=== PATIENT | female | born 1960 | race Caucasian/White ===

== ENCOUNTER 2025-03-20 15:59 | Emergency (ER) | payer OTHER, SELFPAY ==
--- NOTE | ~2025-03-20 | XR_ITS ---
EXAMINATION: XR FOREARM, RIGHT CLINICAL INFORMATION: foosh COMPARISON: None available. TECHNIQUE: AP and lateral views of the right forearm were obtained. FINDINGS: There is an impacted intra-articular fracture of the distal radius with radial styloid loss of height. There is also a transverse fracture through the base of the ulnar styloid into the distal ulna. There is chronic corticated ossification distal to the ulnar styloid tip. XR/XR forearm RT 2V IMPRESSION: There is an impacted intra-articular fracture of the distal radius. There is an ulnar styloid fracture. Electronically signed by: Thom Pro MD 03/20/2025 04:46 PM EDT
--- NOTE | ~2025-03-20 | CT_ITS ---
CLINICAL HISTORY: fall w had strike CT head without contrast Comparison: None provided Findings: No intra-axial mass, midline shift, hydrocephalus, or acute hemorrhage. No significant atrophy. Very mild nonspecific hqmg-qopwqzb-wyiv-right frontal periventricular white matter hypodensities likely minimal chronic small-vessel ischemic changes. The visualized paranasal sinuses and mastoid air cells are clear. The orbits are unremarkable. There is no acute skull fracture. IMPRESSION: 1. No acute intracranial findings. This document has been electronically signed by: Leana Lomeli MD on 03/20/2025 18:11:29
--- NOTE | ~2025-03-20 | XR_ITS ---
CLINICAL HISTORY: pain, injury 4 view right knee Comparison: None provided Findings: No acute fracture. No dislocation. No significant degenerative changes. No erosions. No joint effusion. IMPRESSION: 1. No acute findings. This document has been electronically signed by: Leana Lomeli MD on 03/20/2025 18:56:54
--- NOTE | ~2025-03-20 | CT_ITS ---
CLINICAL HISTORY: fall, pain CT maxillofacial without contrast Comparison: None provided Findings: No acute fractures. Temporomandibular joints are intact. Paranasal sinuses and mastoid air cells clear. Unremarkable orbital contents. IMPRESSION: No acute fracture of the facial bones. This document has been electronically signed by: Leana Lomeli MD on 03/20/2025 18:08:02
--- NOTE | ~2025-03-20 | XR_ITS ---
EXAMINATION: XR HAND, RIGHT CLINICAL INFORMATION: foosh COMPARISON: None available. TECHNIQUE: PA, lateral, and oblique views of the right hand. FINDINGS: There is a mildly impacted articular fracture of the distal radius and small cortical avulsion at the tip of the radial styloid. Forearm x-ray, there is suggestion of a fracture through the base of the ulnar styloid. However, this may just be related to congenital cortical irregularity on the ulnar side of the base of the ulna. There is a small chronic ossification at the distal tip the ulnar styloid. No other abnormality is evident. XR/XR hand RT min 3V IMPRESSION: There is a mildly impacted fracture involving the distal radial articular surface. On the forearm x-ray, there was suspicion of a fracture through the base of the ulnar styloid. However, on the wrist x-ray, there is a small focal concavity on the cortex of the distal ulna that is probably congenital rather than related to a nondisplaced fracture. Correlate for focal pain. Electronically signed by: Thom Pro MD 03/20/2025 04:50 PM EDT
--- NOTE | ~2025-03-20 | CT_ITS ---
CLINICAL HISTORY: fall with head strike CT cervical spine without contrast Comparison: None provided Findings: There is straightening of the cervical lordosis. No subluxation. Vertebral body height is maintained. No acute fracture in the cervical spine. Craniocervical junction is intact. Degenerative disc disease at C4-5 and C5-6 with right neural foraminal stenosis at C4-5 and C5-6. Facet arthropathy especially at C3-4 on the left. Prevertebral soft tissues within normal limits. Thyroid is very small or absent. Lung apices are clear. IMPRESSION: No acute findings. This document has been electronically signed by: Leana Lomeli MD on 03/20/2025 18:01:07
--- NOTE | 2025-03-20 16:02 | ED_ITS ---
HPI - General Adult General Chief complaint: Fall Stated complaint: ? fracture rt arm Time Seen by Provider: 03/20/25 17:02 Source: patient and other (patient's friend) Mode of arrival: ambulatory Limitations: no limitations History of Present Illness ED Provider: Buffy Barahona PA-C HPI narrative: Patient is a 64 year old assigned female at with a history of legal blindness presenting to the emergency department today with right wrist pain, right elbow pain, right knee pain, and facial pain after a fall. Patient states that she tripped on the sidewalk and caught herself with her right arm. Patient denies any other complaints at this time. Patient states that she hit her face but did not lose consciousness with the incident. Related Data Allergies Allergy/AdvReac Type Severity Reaction Status Date / Time No Known Allergies Allergy Verified 03/20/25 16:07 Review of Systems Constitutional: Constitutional: Reports as per HPI Eyes: Eyes: Reports as per HPI ENT: Reports as per HPI Cardiovascular: Cardiovascular: Reports as per HPI Respiratory: Respiratory: Reports as per HPI Gastrointestinal: Gastrointestinal: Reports as per HPI Genitourinary: Genitourinary: Reports as per HPI Musculoskeletal: Musculoskeletal: Reports as per HPI Integumentary/Breasts: Skin/Breast: Reports as per HPI Neurologic: Reports as per HPI Psychiatric: Psychiatric: Reports as per HPI Endocrine: Endocrine: Reports as per HPI Hematologic/Lymphatic: Hematologic/Lymphatic: Reports as per HPI Allergic/Immunologic: Allergic/Immunologic: Reports as per HPI PMF Past Medical History Attestation statement: The following information was validated with the patient. Source: old records reviewed, nursing notes reviewed and other (patient's friend provided additional history and confirmed the history provided by the patient) Social History Social History Smoked in Last 30 Days: No Use of substances other than those prescribed or required for medical reasons: No Advance Directives: No Advance Directives Information Provided: No Do you have a plan to hurt others: No Plan Patient : No Physical Exam ED Vital Signs: Vital Signs - 24 hr 03/20/25 16:05 03/20/25 18:24 03/20/25 19:38 Temperature 97 F 97.4 F 97.5 F Pulse Rate 84 76 69 Respiratory Rate 18 16 16 Blood Pressure 215/107 H 139/76 131/78 Pulse Oximetry 98 100 97 Oxygen Delivery Method Room Air Room Air Room Air BMI result Body Mass Index 26.4 Const General: cooperative, no acute distress, alert and awake Nutritional Appearance: well nourished Orientation/consciousness: patient oriented x3 HENMT Head: Yes normal to inspection and Yes atraumatic Ears: hearing grossly normal bilaterally and external ears normal General nose exam: no nasal discharge noted, no epistaxis and Other nasal findings present (bruising present to the bridge of the nose) Face and sinus: No abrasion and No laceration Mouth: Normal oral and palatal mucosa present, no drooling and no muffled voice Eyes General: appearance normal, both eyes and all related structures Periorbital: periorbital findings normal Eyelids: Yes eyelids normal Conjunctivae: conjunctivae normal Pupils: Equal, round and reactive pupils present EOM: EOMs intact bilaterally Neck Neck: Yes normal visual inspection and Yes full ROM Resp Effort & Inspection: normal respiratory effort and able to speak in complete sentences Neuro General: patient oriented x3, moves all extremities and CN's II-XI intact bilaterally Cranial nerves: Yes Equal, round and reactive pupils present Cognition (Neuro): normal cognition Extrem Other: pain with right wrist + elbow ROM General: Yes normal to inspection and Yes capillary refill normal Psych Appearance: grossly normal Mental Status: mental status grossly normal Affect: normal affect Attitude: cooperative Thought process: Normal thought process present Thought content: Normal thought content present Insight: Good insight present (Psych) Course Course Course Narrative: This is a Rapid Medical Examination (RME) performed by Juan Magana PA-C in triage. Full HPI, ROS, assessment and treatment plan per primary provider in the Main ED. Hx: 64 yo F here w/ right wrist/forearm pain s/p trip and fall onto outstretched right hand [employer]. +head strike. no head or neck pain. no LOC. no thinners. PE/vitals: Subtle deformity to right wrist at the ulnar aspect. limited ROM. 2+radial pulse. Plan: imaging. sling applied in triage. Medications Administered Discontinued Medications Generic Name Dose Route Start Last Admin Trade Name Freq PRN Reason Stop Dose Admin Ketorolac Tromethamine 15 mg 03/20/25 18:33 03/20/25 18:47 Ketorolac Tromethamine 15 Mg/Ml Vial IM 10/31/25 18:34 15 mg ONCE ONE Administration Oxycodone HCl 5 mg 03/20/25 18:33 03/20/25 18:47 Oxycodone Hcl Immed Release 5 Mg Tablet PO 03/20/25 18:34 5 mg ONCE ONE Administration Procedures Orthopedic Splinting/Casting Right wrist: Side: right Upper Extremity Injury Location: wrist Upper Extremity Immobilizer: sling/shoulder immobilizer and sugar tong splint Medical Decision Making Medical Decision Making MDM Narrative: Patient is a 64 year old assigned female at with a history of legal blindness presenting to the emergency department today with right wrist pain, right elbow pain, right knee pain, and facial pain after a fall. Patient's physical exam was as noted in the physical exam portion of this note. Patient's right knee x-ray showed no acute process. Patient's CT face, c-spine, and head were negative. Patient's right hand and forearm x-rays showed a distal radius + ulna styloid fracture. I explained my physical exam findings as well as all test results to the patient and the patient's friend. I answered all questions asked by the patient and the patient's friend. Patient's right wrist was placed in a sugar tong splint, without incident. Patient's PMS was intact prior to and after splint placement. Patient's right upper extremity was placed in a sling, without incident. Patient's PMS was intact prior to and after sling placement. I stressed the importance of the patient taking her medication as directed (either prescribed or as the over the counter packaging recommends). I stressed the importance of the patient following up with her primary care provider and the orthopedic team. I stressed the importance of the patient returning to the emergency department immediately if her symptoms were to worsen or if she were to develop any dizziness, shortness of breath, difficulty breathing, chest pain, blurry vision, loss of vision, nausea, vomiting, abdominal pain, fever, chills, back pain, or any other complaints. Patient and the patient's friend verbalized agreement and understanding with this treatment plan and discharge. Differential Diagnosis Differential Diagnoses: The differential diagnosis associated with the presentation includes Wrist fracture Wrist sprain Wrist strain Elbow sprain Elbow fracture Knee sprain Knee fracture Patellar fracture Knee pain Head injury Facial injury Admission/Observation Consideration of admission/observation: Escalation of care including admission/observation considered Patient would have been admitted to the hospital had her work up had any find ings where hospital admission was appropriate and her clinical presentation warranted hospital admission. Independent Interpretation I performed an independent interpretation of an: Plain X-Ray and CT Scan Interpretation: My interpretation is in agreement with the radiologist's impression of these imaging studies. Reason for Exam: foosh EXAMINATION: XR FOREARM, RIGHT CLINICAL INFORMATION: foosh COMPARISON: None available. TECHNIQUE: AP and lateral views of the right forearm were obtained. FINDINGS: There is an impacted intra-articular fracture of the distal radius with radial styloid loss of height. There is also a transverse fracture through the base of the ulnar styloid into the distal ulna. There is chronic corticated ossification distal to the ulnar styloid tip. XR/XR forearm RT 2V IMPRESSION: There is an impacted intra-articular fracture of the distal radius. There is an ulnar styloid fracture. Electronically signed by: Thom Pro MD 03/20/2025 04:46 PM EDT Dictated By: Thom Pro MD Signed By: Electronically signed by Thom Pro MD 03/20/25 1646 Reason for Exam: foosh EXAMINATION: XR HAND, RIGHT CLINICAL INFORMATION: foosh COMPARISON: None available. TECHNIQUE: PA, lateral, and oblique views of the right hand. FINDINGS: There is a mildly impacted articular fracture of the distal radius and small cortical avulsion at the tip of the radial styloid. Forearm x-ray, there is suggestion of a fracture through the base of the ulnar styloid. However, this may just be related to congenital cortical irregularity on the ulnar side of the base of the ulna. There is a small chronic ossification at the distal tip the ulnar styloid. No other abnormality is evident. XR/XR hand RT min 3V IMPRESSION: There is a mildly impacted fracture involving the distal radial articular surface. On the forearm x-ray, there was suspicion of a fracture through the base of the ulnar styloid. However, on the wrist x-ray, there is a small focal concavity on the cortex of the distal ulna that is probably congenital rather than related to a nondisplaced fracture. Correlate for focal pain. Electronically signed by: Thom Pro MD 03/20/2025 04:50 PM EDT RP Dictated By: Thom Pro MD Signed By: Electronically signed by Thom Pro MD 03/20/25 0870 Report Number: [id number]: Total DLP = 214.00 mGy-cm Reason for Exam: fall with head strike CLINICAL HISTORY: fall with head strike CT cervical spine without contrast Comparison: None provided Findings: There is straightening of the cervical lordosis. No subluxation. Vertebral body height is maintained. No acute fracture in the cervical spine. Craniocervical junction is intact. Degenerative disc disease at C4-5 and C5-6 with right neural foraminal stenosis at C4-5 and C5-6. Facet arthropathy especially at C3-4 on the left. Prevertebral soft tissues within normal limits. Thyroid is very small or absent. Lung apices are clear. IMPRESSION: No acute findings. This document has been electronically signed by: Leana Lomeli MD on 03/20/2025 18:01:07 Dictated By: Leana Lomeli MD Signed By: Electronically signed by Leana Lomeli MD 03/20/25 [id number] Reason for Exam: fall, pain CLINICAL HISTORY: fall, pain CT maxillofacial without contrast Comparison: None provided Findings: No acute fractures. Temporomandibular joints are intact. Paranasal sinuses and mastoid air cells clear. Unremarkable orbital contents. IMPRESSION: No acute fracture of the facial bones. This document has been electronically signed by: Leana Lomeli MD on 03/20/2025 18:08:02 Dictated By: Leana Lomeli MD Signed By: Electronically signed by Leana Lomeli MD 03/20/25 1808 Reason for Exam: fall w/ had strike CLINICAL HISTORY: fall w had strike CT head without contrast Comparison: None provided Findings: No intra-axial mass, midline shift, hydrocephalus, or acute hemorrhage. No significant atrophy. Very mild nonspecific qqnz-[id number]-right frontal periventricular white matter hypodensities likely minimal chronic small- vessel ischemic changes. The visualized paranasal sinuses and mastoid air cells are clear. The orbits are unremarkable. There is no acute skull fracture. IMPRESSION: 1. No acute intracranial findings. This document has been electronically signed by: Leana Lomeli MD on 03/20/2025 18:11:29 Dictated By: Leana Lomeli MD Signed By: Electronically signed by Leana Lomeli MD 03/20/25 1813 Reason for Exam: pain, injury CLINICAL HISTORY: pain, injury 4 view right knee Comparison: None provided Findings: No acute fracture. No dislocation. No significant degenerative changes. No erosions. No joint effusion. IMPRESSION: 1. No acute findings. This document has been electronically signed by: Leana Lomeli MD on 03/20/2025 18:56:5 Dictated By: Leana Lomeli MD Signed By: Electronically signed by Leana Lomeli MD 03/20/25 4870 Radiology Impression Discussion of test interpretation with radiology: I have reviewed the radiologist's reading. Independent Historian Clinical information obtained from an independent historian. History obtained from or confirmed by: Friend (patient's friend provided additional history and confirmed the history provided by the patient. ) Discharge Plan Discharge Clinical Impression: Fracture of wrist, Fall, Contusion Patient Disposition: Home, Self-Care Instructions: Wrist Fracture in Adults (ED), Fall Prevention (ED) Additional Instructions: Do NOT stick anything down / into your splint. Do NOT get your splint wet. Do NOT remove your splint. If you have any change in sensation, movement, or color of your right fingers - you may loosen the outer ABDULAZIZ wraps. If you find yourself loosening the ABDULAZIZ wraps to the point of seeing the white splint material underneath - STOP and proceed to your closest Emergency Department, immediately. Your sling is ONLY to be worn when ambulating and should be OFF all other times with regular shoulder movement to avoid developing frozen shoulder. Follow up with your primary care provider and the orthopedic team. Return to the emergency department immediately if your symptoms worsen or if you develop any numbness, tingling, dizziness, shortness of breath, difficulty breathing, chest pain, blurry vision, loss of vision, nausea, vomiting, abdominal pain, fever, chills, back pain, or any other complaints. Please see the information below about our Patient Portal. If you are not yet enrolled in the [facility] Patient Portal, you will receive an enrollment email invitation following your visit to any [facility] setting. You may also self-enroll in the Patient Portal by visiting our website: [email or web address] The following information is required to access the Patient Portal: - Your [facility] Medical Record Number - Your personal home email address (must match what is in your electronic medica l record, Registration staff can assist with this) - Name - Date of Capabilities of the Patient Portal: - Message some providers - View upcoming appointments - Access your health summary, medical history, and visit history - View current conditions and allergies - View procedure and lab results - View your medications, including guidelines, side effects, and precautions - Complete pre-appointment questionnaires requested by your provider - Ready summary reports of your office visits and procedures To access the Patient Portal Mobile [employer], follow these directions: - Search [employer] in the [employer] Store or [employer] Store - Download the Caesar - Search for [facility] - Enter your login/password Referrals: [facility] Orthopedic Surgeons [Provider Group] Referral Note: Call to establish and follow up with the orthopedic team. Rustam Key DO [Primary Care Provider, Internal Medicine] Interventions: ED Discharge Assessment Last Done: 03/20/25 19:38 Discharge Date/Time: 03/20/25 19:40 Print Language: Lao
[2025-03-20 16:05] VITALS: BP 215/107; PULSE 84; RESP 18; TEMP 36.1; O2SAT 98; BMI 26.4
--- OUTSIDE RECORDS SUMMARY | 2025-03-20 17:24 | XMS_ITS | Clinical Summary ---
Author Organization [facility] Address [address] [place] [phone] Phone Care Team Providers Care Wafer Polishing Worker Name Role Phone Rustam Key Primary Care Provider Allergies No known active allergies Medications montelukast (SINGULAIR) 10 mg tablet Take 10 mg by mouth nightly at bedtime. Active albuterol 90 mcg/actuation inhaler Inhale 2 puffs into the lungs every 6 (six) hours as needed for wheezing. Active fluticasone propionate (FLONASE) 50 mcg/actuation nasal spray 1 spray by Nasal route daily. Active levothyroxine (SYNTHROID, LEVOTHROID) 112 MCG tablet Take 112 mcg by mouth every morning. 10/27/19 24 Active fluticasone propion-salmetero L (ADVAIR DISKUS) 250-50 mcg/dose DISKUS Inhale 250 mcg/actuation of fluticasone into the lungs 2 (two) times a day. Active ketoconazole (NIZORAL) 2 % shampoo Apply topically. 12/26/19 24 Active multivit-min/iron /folic acid/K (BARIATRIC MULTIVITAMINS ORAL) Take by mouth. patch Active nitrofurantoin (MACROBID) 100 MG capsule Take 1 capsule by mouth 2 (two) times a day. 02/25/20 24 Active diazePAM (VALIUM) 5 MG tablet TAKE 1 TABLET BY MOUTH EVERY 8 HOURS NEEDED FOR MUSCLE SPASMS DO NOT TAKE SAME TIME OXYCODONE 12/31/20 24 Active docusate sodium (COLACE) 100 MG capsule TAKE 1 CAPSULE BY MOUTH 2 TIMES A DAY NEEDED FOR CONSTIPATION 05/20/20 24 Active biotin 1 mg tablet Take 1,000 mcg by mouth 3 (three) times a day. Active hydrocortisone 2.5 % cream PLEASE SEE ATTACHED FOR DETAILED DIRECTIONS 09/11/19 25 Active lidocaine HCl, bulk, 100 % Powd 09/11/19 25 Active Active Problems Problem Noted Date Diagnosed Date Intestinal malabsorption following gastrectomy 0 05/27/2024 Overweight with body mass in dex (BMI) of 26 to 26.9 in adult 03/18/2024 Assessment & Plan (02/17/2025 3:53 PM EDT): This is a 64-year-old woman who is status post laparoscopic sleeve gastrectomy with hiatal hernia repair January 03, 2024. She has done extremely well with weight loss. She will continue current eating plan and water intake. She should add formalized exercise. I have ordered her annual blood work. She will continue current medications as reviewed. She will follow-up with her primary care physician going forward for her bariatric follow-up and for annual blood work in December. Assessment & Plan (10/03/2024 3:43 PM EDT): This is a 64-year-old woman who is doing extremely well with weight loss after having laparoscopic sleeve gastrectomy with hiatal hernia repair December 2023. The patient needs to add back formalized exercise. She is drinking plenty of water and she is getting at least 60 g of protein on a daily basis. She will continue current medications as reviewed. She will follow-up with me again in 3 months timeframe. She is not stable and is considered overweight. Assessment & Plan (08/01/2024 3:00 PM EDT): This is a 64-year-old woman who has done well with weight loss after having laparoscopic sleeve gastrectomy. Her weight is pretty stable over the past couple of months. She will increase her formalized exercise and add some strength training. She will continue current eating plan and water intake. She will continue current medications as reviewed. She is not stable and is considered overweight. I will follow-up with her again in the office in 2 months timeframe. Assessment & Plan (05/27/2024 4:47 PM EST): This is a 63-year-old woman who underwent a laparoscopic sleeve gastrectomy with hiatal hernia repair January 03, 2024. The patient is doing well with eating plan exercise plan and water intake. I have ordered her 6-month blood work. She will follow-up with the dietitian as already scheduled for June 16 and follow-up with me again in 2 months timeframe. She is not stable and is considered overweight. Assessment & Plan (03/18/2024 4:03 PM EDT): This is a 63-year-old woman who is doing well with weight loss after having laparoscopic sleeve gastrectomy with hiatal hernia repair January 03, 2024. The patient is usually getting 60 g of protein she should continue with this. She is no longer being treated for hypertension and has been taken off her medication. She will increase the frequency and intensity of her exercise and add some resistance training. She will continue all other medications as reviewed. She will follow- up with the dietitian as already scheduled for April 16 follow-up with me again in 2 months timeframe. She is not stable and is considered overweight. Status post laparoscopic sleeve gastrectomy 12/19 Hypertension 12/12/2023 Asthma 12/12/2023 Hypothyroidism 12/12/2023 Class 1 obesity due to exces s calories with serious comorbidity and body mass index (BMI) of 32.0 to 32.9 in adult 11/16/2023 Assessment & Plan (01/22/2024 4:36 PM EDT): This is a 63-year-old woman who is doing well with weight loss after having laparoscopic sleeve gastrectomy with hiatal hernia repair about 2 weeks ago. The patient will advance her diet to a pur ed diet with 2 protein shakes being consumed per day for 2 weeks and then advance to a soft regular diet with 2 protein shakes being consumed per day for 2 weeks and then advance to a regular diet with 2 protein shakes being consumed per day with her meals and she will about 4 to 6 months out from surgery until she can consume at least 70 to 80 g of protein on a daily basis by food alone. The patient should avoid all heavy lifting greater than 15 pounds for another 2 weeks and then may go unrestricted in terms of physical activity. Patient will follow-up with the dietitian as already scheduled for February 03 and follow-up with me again in 2 months timeframe. The patient may advance her diet as prescribed below: Postoperative Diet Advancement Two weeks postoperatively: Two protein shakes daily and 2 small meals that are pureed Advanced to pureed diet which is chunk light pink tuna with mayonnaise, canned shredded chicken with mayonnaise, ricotta cheese with spaghetti sauce, ground turkey or ground chicken chili without beans, scrambled eggs, cottage cheese, Mold[place] yogurt, cauliflower rice, or you may place any food in the tailings worker a food specialist to create pureed food. Four weeks postoperatively: Two protein shakes daily and 2 small soft regular meals. At this point you will not have to puree food. Make sure the food is cooked soft and chewed well before you swallow it. Six weeks postoperatively: Two protein shakes daily and 2 regular meals. Avoid all salads and raw vegetables for 3 months postoperatively. Assessment & Plan (11/16/2023 2:56 PM EDT): This is a 63-year-old woman who is done extremely well with weight loss and has lost all the weight she needs to lose in order to be a surgical weight loss candidate. She is interested in sleeve gastrectomy for weight loss. She has completed 5 out of 5 nutrition classes, 2 out of 2 behavioral health assessments and all required testing. She has her PCP support letter. She will continue current eating plan and exercise plan and water intake. Will submit her information to the insurance company for approval for laparoscopic possible open sleeve gastrectomy with possible hiatal hernia repair and intraoperative endoscopy. Once we have approval from the insurance company we will set up a date to have the preoperative surgical class with the dietitian and we will set up a surgical date. Preoperative examination 10/01/2023 Morbid obesity with BMI of 40.0-44.9, adult 09/18 Assessment & Plan (10/01/2023 3:28 PM EDT): This is a 63 YO patient who is interested in weight loss surgery, specifically the laparoscopic sleeve gastrectomy for weight loss. We have discussed gastric bypass and sleeve gastrectomy surgery in detail including risks, benefits, and alternatives. We have also discussed requirements preop and post op. They understands that they are required to lose about 10 percent of their current weight which is 21 lbs. The goal weight at the time of submission to the insurance company will be 193.8 pounds. In an effort to help the patient to lose weight I have prescribed an eating plan which will consist of a protein shake or a protein bar or [place] yogurt or cottage cheese to be consumed at 9 AM and 3 PM daily. The patient will consume 4 ounces of protein with 6 ounces of vegetable or small salad with a noncreamy salad dressing of not more than 2 tablespoons at 12 PM and 6 PM daily. At the 6 PM meal the patient may have 1/2 cup of carbohydrate. We have ordered required labs and testing. The patient will attend 5 nutrition classes, 2 appointments, and dietitian consultation. The patient will need to obtain a medical clearance letter from the primary care doctor prior to submission to the insurance company. The patient will see the dietitian in 2 and 4 weeks and I will follow up with them again in 6 weeks to ensure compliance with the meal plan. The patient will continue current medications as reviewed. They are not stable and are considered morbidly obese. I spent 57 minutes with this patient which also included documentation. Encounters Date Type Department Care Team Description 02/17/2025 3:30 PM EDT Office Visit [facility] General Surgical [facility] [address] [place] [address] [place] [address] Sepideh Barrientos MD Overweight with body mass index (BMI) of 26 to 26.9 in adult (Primary Dx); Bariatric surgery status; Status post laparoscopic sleeve gastrectomy; Intestinal malabsorption following gastrectomy; Acquired hypothyroidism from Last 3 Months Immunizations Immunization Administration Dates Next Due COVID-19 Moderna Spikevax Vaccine 12+ 02/29/2024 COVID-19, Unspecified Formulation 2021,10/20/2021,03/23/2021,2020,07/12/2020 INFLUENZA, SPLIT VIRUS, TRIV ALENT W/ PRESERVATIVE IM 02/28/2022 Influenza Quadrivalent MDCK Preservative Free IM 02/28/2022 Influenza Quadrivalent Prese rvative Free IM 02/20/2020 Influenza, Unspecified Formulation 02/29/2024 Influenza, whole 02/20/2020 Td, unspecified formulation 03/08/2006 Tdap 06/13/2016 Family History Medical History Relation Comments Skin cancer Brother Stroke Maternal Grandmother Dementia Mother Alcohol abuse Sister Drug abuse Sister Relation Status Comments Brother Alive Maternal Grandmother Mother Alive Sister Alive Social History Tobacco Use Types Packs/Day Years Used Date Smoking Tobacco: Never Smokeless Tobacco: Never Tobacco Cessation:Counseling Given: Not Answered Alcohol Use Standard Drinks/Week Comments Yes 0 (1 standard drink = 0.6 oz pure alcohol) 2 glasses of white wine per month if that Education Answer Date Recorded Are you interested in more education? Not on isac e 09/15/2022 Are you concerned about learning? Not on file 09/15/2022 No 09/15/2022 No 09/15/2022 Food Answer Date Recorded Within the past 6 months we worried whether our food would run out before we got money to buy more. Never True 01/03/2024 Within the past 6 months the food we bought just didn't last and we didn't have enough money to get more. Never True Residential Stability Answer Date Recor ded What is your housing situation today? I have padmini sing 01/03/2024 How many times have you move d in the past 12 months? Zero (I did not move) 01/03/2024 Paying for Meds Answer Date Recorded Do you have trouble paying for medicines? No 01/03/2024 Paying Utility Bills Answer Date Record ed Do you have trouble paying your heating or elect ricity bill? No 01/03/2024 Transportation Answer Date Recorded Has the lack of transportati on kept you from medical appointments or from getting medications? No 01/03/2024 Digital Access Answer Date Recorded No 01/03/2024 Yes 01/03/2024 Do you have reliable internet access at home? Ye s 01/03/2024 Do you have a device (e.g., phone, tablet, computer) with a working camera? Yes 01/03/2024 Intimate Partner Violence Answer Date R ecorded Are you denied basic needs s uch as food, clothing, or medical care? No 01/03/2024 In the past 12 months have y ou been in a relationship with a person who hurts, threatens, or tries to control you? No 01/03/2024 Are you denied basic needs s uch as food, clothing, or medical care? No 01/03/2024 In the past 12 months have y ou been in a relationship with a person who hurts, threatens, or tries to control you? 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 Not on fi le Not on file Not on file Last Filed Vital Signs Vital Sign Reading Time Taken Comments Blood Pressure 110/70 02/17/2025 3:00 PM EDT Pulse 76 02/17/2025 3:00 PM EDT Temperature 36.5 C (97.7 F) 02/17/2025 3:00 PM EDT Respiratory Rate 18 01/04/2024 11:24 AM EDT Oxygen Saturation 98% 02/17/2025 3:00 PM EDT Inhaled Oxygen Concentration - - Weight 62.2 kg (137 lb 3.2 oz) 02/17/2025 3:00 P M EDT Height 152.4 cm (5') 02/17/2025 3:00 PM EDT Body Mass Index 26.8 02/17/2025 3:00 PM EDT Plan of Treatment Health Maintenance Due Date Last Done Comments HEPATITIS C SCREENING 1980 HIV ONE-TIME SCREENING (18-65 YEARS) 1980 PNEUMOCOCCAL VACCINES (50+ years) (1 of 2 - PCV) 1981 PAP SMEAR 1983 MAMMOGRAM 2002 COLOGUARD 2007 COLONOSCOPY 2007 COLORECTAL CANCER SCREENING 2007 FIT TEST 2007 FOBT 2007 SIGMOIDOSCOPY 2007 VIRTUAL COLONOSCOPY 2007 RSV VACCINE (1 - Risk 50-74 years 1-dose series) 2012 ZOSTER VACCINES (1 of 2) 2012 DEPRESSION SCREENING 10/23/2024 10/24/2023 INFLUENZA VACCINE (#1) 2024 , 02/28/2022, 02/28/2022, Additional history exists COVID-19 VACCINE (2024- season) 2025 02/29/2024, 02/28/2022, 02/28/2022, Additional history exists TSH LEVEL 05/28/2025 05/28/2024, 06/0 12/2023, 06/16/2019 BLOOD PRESSURE 08/17/2025 02/17/2025 Adult Td,Tdap Booster 06/13/2026 06/13/2016, 006 SCREENING FOR DIABETES 05/28/2027 05/28/2024, 2024 LIPID PANEL 05/28/2029 05/28/2024, 10/27/2023 SMOKING STATUS SCREENING (Once After 26 Yrs) Completed 02/17/2025 HEPATITIS A VACCINES Aged Out No long er eligible based on patient's age to complete this topic HIB VACCINES Aged Out No longer eligi ble based on patient's age to complete this topic MENINGOCOCCAL VACCINES (ACWY) Aged Out No longer eligible based on patient's age to complete this topic MENINGOCOCCAL VACCINES (B) Aged Out N o longer eligible based on patient's age to complete this topic Medical Devices Implanted Type Area Invoicing Machine Operator Device Identifier Shelf Expiration Date Model / Serial / Lot [employer] Mandible Description:Dental implants Procedures Procedure Name Priority Date/Time Associated Diagnosis Comments LIPID PANEL Routine 05/28/2024 2:19 PM EST Intestinal malabsorption following gastrectomy TSH Routine 05/28/2024 2:19 PM EST Acquired hypothyroidism from Last 3 Months or Most Recently Relevant to Health Maintenance Results * TSH (05/28/2024 2:19 PM EST) TSH 0.46 0.27 - 4.20 uIU/mL [facility] Blood 05/28/2024 2:19 PM EST 05/28/2024 2:28 PM EST us Sepideh Lauren Iliana MD LAB BLOOD ORDERABLES Final Result Performing Organization Address [facility]/ZIP Co de Phone Number [address] [address] * (ABNORMAL) Lipid panel (05/28/2024 2:19 PM EST) HDL 61 mg/dL [facility] Comment: Interpretation <40 mg/dL: Low HDL cholesterol (major risk factor for CHD) Greater than or equal to 60 mg/dL: High HDL cholesterol ( negative risk factor for CHD) HDL - cholesterol is affected by a number of factors, e.g. smoking, excerise, hormones, sex and age. CHOLESTEROL 181 0 - 240 mg/dL [facility] TRIGLYCERIDES 101 30 - 160 mg/dL [facility] LDL 100 50 - 129 mg/dL [facility] Comment: LDL levels in terms of risk for coronary heart disease: <100 mg/dL: Optimal 100-129 mg/dL: Near or above optimal 130-159 mg/dL: Borderline high 160-189 mg/dL: High >190 mg/dL: Very High CARDIAC RISK RATIO 3.0(L) 3.3 - 4.4 C [facility] Blood 05/28/2024 2:19 PM EST 05/28/2024 2:29 PM EST us Sepideh Barrientos MD LAB BLOOD ORDERABLES Final Result Performing Organization Address [facility] Co de Phone Number [address] [address] from Last 3 Months or Most Recently Relevant to Health Maintenance Insurance [facility] [employer] [place] [address] [place] [address] EMPLOYEES FAMILY EMPLOYEES FAMILY EMPLOYEES FAMILY EMPLOYEES FAMILY EMPLOYEES FAMILY EMPLOYEES FAMILY EMPLOYEES FAMILY EMPLOYEES FAMILY Advance Directives For more information, please contact: [phone] (9AM - 5PM [place], Sunday-Sunday) * Full Code (Latest Code Status on File) Date Activated Date Inactivated Comments 01/03/2024 12:47 PM Question Answer Comments Code Status Confirmed With: Patient * Full Code Date Activated Date Inactivated Comments 01/03/2024 7:16 AM 01/03/2024 12:47 PM Question Answer Comments Code Status Confirmed With: Patient Care Teams Wafer Polishing Worker Relationship Specialty Start Date End Date [facility] DO [facility] [address] [address] PCP - General Family Medicine 01/04/24 Additional Source Comments The information contained in this document represents components of the legal health record. It is not the complete legal health record.[facility]
--- OUTSIDE RECORDS SUMMARY | 2025-03-20 17:24 | XMS_ITS | Encounter Summary ---
Author Organization [facility] Address [address] [place] [phone] Phone Care Team Providers Care Storage Wharfage Clerk Name Role Phone Radha Carroll MD Primary Care Provider [phone] Natalie Manning MD Primary Care Provider [phone] Rustam Key DO Primary Care Provider + [phone] Encounter Details Date Type Department Care Team (Late st Contact Info) Description 09/04/2017 Procedure Pass [facility],Outside Imaging [address], [place] [id number] Social History Tobacco Use Types Packs/Day Years Used Date Smoking Tobacco: Never Assessed Comments Unknown Sex and Gender Information Value Date Recorded Sex Assigned at Female 11/30/2023 8:17 AM EDT Legal Sex Female 9:45 PM EDT Gender Identity Female 11/30/2023 8:17 AM EDT Sexual Orientation Not on file documented as of this encounter Plan of Treatment Not on file documented as of this encounter Visit Diagnoses Not on filedocumented in this encounter Care Teams Storage Wharfage Clerk Relationship Specialty Start Date End Date Radha Carroll MD [email or web address] PCP - General Family Medicine 09/03/17 04/13/19 Natalie Manning MD [address] [place], [place] [id number] [email or web address] PCP - General Family Medicine 04/14/1901/02 [facility] [address] [address] PCP - General Family Medicine 01/04/24 documented as of this encounter Additional Source Comments The information contained in this document represents components of the legal health record. It is not the complete legal health record.[facility]
--- OUTSIDE RECORDS SUMMARY | 2025-03-20 17:24 | XMS_ITS | Encounter Summary ---
Author Organization [facility] Address [facility] [employer] [facility] [address] [place] [address] Phone Care Team Providers Care Supervisor Wood Room Name Role Phone Radha Carroll MD Primary Care Provider [phone] Natalie Manning MD Primary Care Provider [phone] Rustam Key DO Primary Care Provider [phone] Encounter Details Date Type Department Care Team (Late st Contact Info) Description 09/03/2017 Ancillary Orders Virtual Department [address] [place] [address] Radha Carroll MD 38 [facility] [address] [place] [address] [email or web address] Localized swelling, mass and lump, unspecified Social History Tobacco Use Types Packs/Day Years [...] on file documented as of this encounter Results * MRI ABDOMEN WITH AND WITHOUT CONTRAST (09/05/2017 8:22 PM EDT) Anatomical Region Laterality Modality Abdomen Magnetic Resonan ce 09/05/2017 9:37 PM EDT Impressions 09/06/2017 12:58 PM EDT Lesion on CT corresponds with a hemangioma. There is an additional smaller adjacent hemangioma. Two pancreatic cysts, one of which communicates with the duct. These could represent cysts, pseudocysts, or IPMN. Recommend follow-up in one year. POS [id number] Edited by: Alisia Raines on 09/06/2017 8:49 AM Narrative 09/06/2017 12:58 PM EDT HISTORY: See above. COMPARISON: None CORRELATION: Abdominal CT 08/31/2017 TECHNIQUE: Exam performed on a 1.5 Scarlet high-field MRI scanner. Axial T1 in and out of phase, T1 with fat suppression and T2 with fat suppression, coronal T1 in and out of phase and T1 with fat suppression, followed by post-gadolinium multi-phase T1 series with fat suppression and coronal T1 with fat suppression sequences were obtained. Radial thick slab MRCP, coronal oblique thin section MRCP sequences were obtained. Reformatted axial and cholangiographic MIP images are available for review. FINDINGS: Liver: Normal in size without architectural changes of cirrhosis. Mild drop of signal on opposed phase imaging from steatosis. In the posterior inferior right hepatic lobe, there is a 2.7 x 2.3 x 2.5 cm T1 hypointense and T2 hyperintense lesion which shows discontinuous peripheral globular enhancement that fills in to become isointense to the blood pool on delayed images compatible with a hemangioma. This corresponds with the lesion seen on the CT. There is a similar-appearing 0.9 cm lesion just medial and superior. Tiny cyst in the inferior right hepatic lobe. Gallbladder/biliary: No filling defects within the gallbladder to indicate gallstones. No pericholecystic fluid or wall thickening. No biliary ductal dilatation. Spleen: No abnormality detected. Pancreas: In the pancreatic head there is a 6 mm cyst which appears to communicate with the main pancreatic duct. In the tail, there is a 0.5 cm cyst which does not clearly communicate with the duct. No solid enhancing mass. No pancreatic ductal dilatation or variant anatomy. Adrenal glands: No masses. Kidneys/ureters: No hydronephrosis or focal lesions. Vasculature: Hepatic veins and portal vein patent. Aorta has normal caliber. Peritoneum: No significant ascites or organized collections. Lymph nodes: No lymphadenopathy detected. Body wall: No suspicious mass. Bowel: Nonobstructed pattern. Normal appendix. Lower Thorax: No infiltrate in the basal lungs. No pleural or pericardial effusions. Bones: Multilevel degenerative changes. Reproductive: 2.5 cm cyst in the left adnexa is likely physiologic. Procedure Note Evon Cosme MD - 09/06/2017 HISTORY: See above. COMPARISON: None CORRELATION: Abdominal CT 08/31/2017 TECHNIQUE: Exam performed on a 1.5 Scarlet high-field MRI scanner. Axial T1in and out of phase, T1 with fat suppression and T2 with fat suppression,coronal T1 in and out of phase and T1 with fat suppression, followed bypost-gadolinium multi-phase T1 series with fat suppression and coronal T1with fat suppression sequences were obtained. Radial thick slab MRCP,coronal oblique thin section MRCP sequences were obtained. Reformattedaxial and cholangiographic MIP images are available for review. FINDINGS: Liver: Normal in size without architectural changes of cirrhosis. Milddrop of signal on opposed phase imaging from steatosis. In the posteriorinferior right hepatic lobe, there is a 2.7 x 2.3 x 2.5 cm T1 hypointenseand T2 hyperintense lesion which shows discontinuous peripheral globularenhancement that fills in to become isointense to the blood pool ondelayed images compatible with a hemangioma. This corresponds with thelesion seen on the CT. There is a similar-appearing 0.9 cm lesion justmedial and superior. Tiny cyst in the inferior right hepatic lobe. Gallbladder/biliary: No filling defects within the gallbladder toindicate gallstones. No pericholecystic fluid or wall thickening. Nobiliary ductal dilatation. Spleen: No abnormality detected. Pancreas: In the pancreatic head there is a 6 mm cyst which appears tocommunicate with the main pancreatic duct. In the tail, there is a 0.5 cmcyst which does not clearly communicate with the duct. No solid enhancingmass. No pancreatic ductal dilatation or variant anatomy. Adrenal glands: No masses. Kidneys/ureters: No hydronephrosis or focal lesions. Vasculature: Hepatic veins and portal vein patent. Aorta has normalcaliber. Peritoneum: No significant ascites or organized collections. Lymph nodes: No lymphadenopathy detected. Body wall: No suspicious mass. Bowel: Nonobstructed pattern. Normal appendix. Lower Thorax: No infiltrate in the basal lungs. No pleural orpericardial effusions. Bones: Multilevel degenerative changes. Reproductive: 2.5 cm cyst in the left adnexa is likely physiologic. IMPRESSION: Lesion on CT corresponds with a hemangioma. There is an additionalsmaller adjacent hemangioma. Two pancreatic cysts, one of which communicates with the duct. Thesecould represent cysts, pseudocysts, or IPMN. Recommend follow-up in oneyear. POS [id number] Edited by: Alisia Raines on 09/06/2017 8:49 AM Radha Carroll MD IMG MR ABDOMEN Final Result documented in this encounter Visit Diagnoses Diagnosis Localized swelling, mass and lump, unspecified Localized swelling, mass and lump, unspecified documented in this encounter Care Teams Supervisor Wood Room Relationship Specialty Start Date End Date Radha Carroll MD [email or web address] PCP - General Family Medicine 09/03/17 04/13/19 Natalie Manning MD [address] [place] [id number] [email or web address] PCP - General Family Medicine 04/14/1899/02 [place] [address] [address] PCP - General Family Medicine 01/04/24 documented as of this encounter Additional Source Comments The information contained in this document represents components of the legal health record. It is not the complete legal health record.[facility]
--- OUTSIDE RECORDS SUMMARY | 2025-03-20 17:24 | XMS_ITS | Encounter Summary ---
Author Organization [facility] Address [address] [place] [address] Phone Care Team Providers Care Statue Maker Name Role Phone Radha Carroll MD Primary Care Provider [phone] Natalie Manning MD Primary Care Provider [phone] Rustam Key DO Primary Care Provider [phone] Reason for Referral * MRI/CAT Scan - Closed Specialty Diagnoses / Procedures Referred By Contac t Referred To Contact Procedures CT Abdomen Outside (No Interpretation) System, Provider Not In, PhD [employer] [address] [place] [id number] Referral ID Status Reason Start Date Expiration Date Visits Re quested Visits Authorized [id number] Closed 09/04/2017 09/04/2018 1 1 Encounter Details Date Type Department Care Team (Late st Contact Info) Description 09/04/2017 Ancillary Orders [facility]Outside Imaging [address] [place] [address] System, Provider Not In, [place] [place] [address] Social History Tobacco Use Types Packs/Day Years [...] documented as of this encounter Results * CT Abdomen Outside (No Interpretation) (08/31/2017 12:00 AM EDT) Narrative SYSTEMGENERATED, DOCUMENTATION - 09/04/2017 6:22 AM EDT This study is for PACS storage only and not for interpretation. us Provider Not In System PhD IMG OUTSIDE IMAGING W /OUT INTERPRETATION Final Result documented in this encounter Visit Diagnoses Not on filedocumented in this encounter Care Teams Statue Maker Relationship Specialty Start Date End Date Radha Carroll MD [email or web address] PCP - General Family Medicine 09/03/17 04/13/19 Natalie Manning MD [address] [place] [address] [email or web address] PCP - General Family Medicine [birth year]01[birth year]02 Rustam Key DO [address] [address] PCP - General Family Medicine 01/04/24 documented as of this encounter Additional Source Comments The information contained in this document represents components of the legal health record. It is not the complete legal health record.[facility]
--- OUTSIDE RECORDS SUMMARY | 2025-03-20 17:24 | XMS_ITS | Encounter Summary ---
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 Wish to be (Past 1 Month) No 01/03/2024 1:00 PM Ramy Wu RN 2. Non-Specific Active Suici timoteo Thoughts (Past 1 Month) No 01/03/2024 1:00 PM EDT Jose A Lynn RN 6. Suicidal Behavior (Lifetime) No 4 1:00 PM EDT Ramy Lynn RN documented as of this encounter Plan of Treatment Not on file documented as of this encounter Visit Diagnoses Not on filedocumented in this encounter Additional Health Concerns Assessment Noted Time PHQ-2 Depression Total Score: 0 10/24/19 24 3:22 PM EDT documented as of this encounter Care Teams Carburetor Repairer Relationship Specialty Start Date End Date Natalie Manning MD [address] [place] [address] [email or web address] PCP - General Family Medicine 04/14/1899/02 Rustam Key DO [address] [address] PCP - General Family Medicine 01/04/24 documented as of this encounter Additional Source Comments The information contained in this document represents components of the legal health record. It is not the complete legal health record.[facility]
--- OUTSIDE RECORDS SUMMARY | 2025-03-20 17:24 | XMS_ITS | Encounter Summary ---
Author Organization [facility] Address [address] [place] [phone] Phone Care Team Providers Care Anime Designer Name Role Phone Radha Carroll MD Primary Care Provider [phone] Natalie Manning MD Primary Care Provider [phone] Rustam Key DO Primary Care Provider [phone] Encounter Details Date Type Department Care Team (Late st Contact Info) Description 09/03/2017 Procedure Pass [facility] [employer], [address] [address] Social History Tobacco Use Types Packs/Day Years Used Date Smoking Tobacco: Never Assessed Comments Unknown Sex and Gender Information Value Date Recorded Sex Assigned at Female 11/30/2023 8:17 AM EDT Legal Sex Female 9:45 PM EDT Gender Identity Female 11/30/2023 8:17 AM EDT Sexual Orientation Not on file documented as of this encounter Last Filed Vital Signs Vital Sign Reading Time Taken Comments Blood Pressure - - Pulse - - Temperature - - Respiratory Rate - - Oxygen Saturation - - Inhaled Oxygen Concentration - - Weight 83.9 kg (185 lb) 09/04/2017 8:47 AM EDT Height 152.4 cm (5') 09/04/2017 8:47 AM EDT Body Mass Index 36.13 09/04/2017 8:47 AM EDT documented in this encounter Plan of Treatment Not on file documented as of this encounter Visit Diagnoses Not on filedocumented in this encounter Care Teams Anime Designer Relationship Specialty Start Date End Date Radha Carroll MD [email or web address] PCP - General Family Medicine 09/03/17 04/13/19 Natalie Manning MD [address] [place] [address] [email or web address] PCP - General Family Medicine 04/14/1899/02 Rustam Key DO [address] [id number] PCP - General Family Medicine 01/04/24 documented as of this encounter Additional Source Comments The information contained in this document represents components of the legal health record. It is not the complete legal health record.[facility]
--- OUTSIDE RECORDS SUMMARY | 2025-03-20 17:24 | XMS_ITS | Encounter Summary ---
Author Organization [facility] Address [address] [place] [address] Phone Care Team Providers Care Enrollment Counselor Name Role Phone Radha Carroll MD Primary Care Provider [phone] Natalie Manning MD Primary Care Provider [phone] Rustam Key DO Primary Care Provider [phone] Reason for Referral * Physical Therapy (Routine) - Closed Specialty Diagnoses / Procedures Referred By Larry ernandez Referred To Contact Physical Therapy Diagnoses Encounter for rehabilitation Natalie Manning MD Phone: tel: fax: mailto:[email or web address] [place] [address] Phone: tel: Referral ID Status Reason Start Date Expiration Date Visits Re quested Visits Authorized [id number] Closed 03/31/2019 05/20/2020 53 53 Encounter Details Date Type Department Care Team (Latest Contact Info) Description 03/31/2019 Transcribe Orders [facility] [address] [place] [address] Natalie Manning MD [address] [place], [place] [id number] [email or web address] Encounter for rehabilitation (Primary Dx) Social History Tobacco Use Types Packs/Day Years Used Date Smoking Tobacco: Never Assessed Comments Unknown Sex and Gender Information Value Date Recorded Sex Assigned at Female 11/30/2023 8:17 AM EDT Legal Sex Female 9:45 PM EDT Gender Identity Female 11/30/2023 8:17 AM EDT Sexual Orientation Not on file documented as of this encounter Plan of Treatment Scheduled Referrals Name Type Priority Associated Diagnoses Orde r Schedule Ambulatory referral to [facility] Physical Therapy Outpatient Referral Routine Encounter for rehabilitation Ordered: 03/31/2019 documented as of this encounter Visit Diagnoses Diagnosis Encounter for rehabilitation- Primary documented in this encounter Care Teams Enrollment Counselor Relationship Specialty Start Date End Date Radha Carroll MD [email or web address] PCP - General Family Medicine 09/03/17 04/13/19 Natalie Manning MD [address] [place] [address] [email or web address] PCP - General Family Medicine 04/14/1899/02 [place] [address] [address] PCP - General Family Medicine 01/04/24 documented as of this encounter Additional Source Comments The information contained in this document represents components of the legal health record. It is not the complete legal health record.[facility]
[2025-03-20 18:24] VITALS: BP 139/76; PULSE 76; RESP 16; TEMP 36.3; O2SAT 100
[2025-03-20] MEDS: oxyCODONE HCl Immed Release 5 MG TABLET PO (18:47)
[2025-03-20 19:38] VITALS: BP 131/78; PULSE 69; RESP 16; TEMP 36.4; O2SAT 97
== END 2025-03-20 19:40 | disposition home or self-care (01) ==
PROVIDERS: Emergency Provider Emergency Medicine; PCP Family Medicine
DX: S52.501A Unspecified fracture of the lower end of right radius, initial encounter for closed fracture (principal); S09.90XA Unspecified injury of head, initial encounter; W01.0XXA Fall on same level from slipping, tripping and stumbling without subsequent striking against object, initial encounter; Y93.89 Activity, other specified; Y92.488 Other paved roadways as the place of occurrence of the external cause; Y99.8 Other external cause status; M25.561 Pain in right knee; H54.8 Legal blindness, as defined in USA; Z79.899 Other long term (current) drug therapy
CPT/HCPCS: 70450; 70486; 72125; 73090; 73130; 73564; 96372; 99284; J1885

== ENCOUNTER → 2025-03-20 16:04 | Outpatient (BNV) | payer OTHER, SELFPAY | PROVIDERS: PCP Family Medicine; Visit Provider Radiology Diagnostic Radiology | DX: S09.90XA Unspecified injury of head, initial encounter (principal); R51.9 Headache, unspecified; S80.911A Unspecified superficial injury of right knee, initial encounter; S52.501A Unspecified fracture of the lower end of right radius, initial encounter for closed fracture; S52.611A Displaced fracture of right ulna styloid process, initial encounter for closed fracture; S52.571A Other intraarticular fracture of lower end of right radius, initial encounter for closed fracture; W18.39XA Other fall on same level, initial encounter; W18.30XA Fall on same level, unspecified, initial encounter | CPT/HCPCS: 70450; 70486; 72125; 73090; 73110; 73130; 73564 ==

== ENCOUNTER 2025-03-23 14:03 | Outpatient (REF) | payer OTHER, SELFPAY | END 2025-03-23 14:04 | disposition home or self-care (01) | LOC: HO.HOSX 14:03 | PROVIDERS: Visit Provider Orthopaedic Surgery | DX: Z13.89 Encounter for screening for other disorder (principal) ==

== ENCOUNTER 2025-03-24 13:04 | Outpatient (REF) | payer OTHER, SELFPAY ==
--- NOTE | ~2025-03-24 | XR_ITS ---
EXAMINATION: XR WRIST, RIGHT CLINICAL INFORMATION: M25.531 - Pain in right wrist COMPARISON: None available. TECHNIQUE: PA, lateral, and oblique views of the right wrist. FINDINGS: Inadequate [id number]. There is a cortical disruption involving the distal metaphysis of the radius and extending into the articular surface without gross malalignment. Cortical disruption of the styloid processes, right ulna. Incomplete evaluation of the scaphoid. No subcutaneous emphysema. No metallic or radiopaque foreign body. XR/XR wrist RT min 3V IMPRESSION: Intra-articular comminuted fracture distal metaphysis, right radius. Fracture, styloid processes, right ulna. Incomplete evaluation of the scaphoid. Electronically signed by: Leroy Mejia MD 03/24/2025 02:31 PM TERRENCE BARLOW
--- OUTSIDE RECORDS SUMMARY | 2025-03-25 15:51 | XMS_ITS | Encounter Summary ---
Author Organization [facility] Address [facility] [employer] [facility] [address] [place] [address] Phone Care Team Providers Care Counter Pocket Trimmer Name Role Phone Radha Carroll MD Primary Care Provider [phone] Natalie Manning MD Primary Care Provider [phone] Rustam Key DO Primary Care Provider [phone] Encounter Details Date Type Department Care Team (Late st Contact Info) Description 09/03/2017 Ancillary Orders Virtual Department [address] [place] [address] Radha Carroll MD 38 [facility] [address] [place] [address] [email or web address] Localized swelling, mass and lump, unspecified [...] unspecified documented in this encounter Care Teams Counter Pocket Trimmer Relationship Specialty Start Date End Date Radha Carroll MD [email or web address] PCP - General Family Medicine 09/03/17 04/13/19 Natalie Manning MD [address] [place] [address] [email or web address] PCP - General Family Medicine 04/14/1901/02 [place] [address] [address] PCP - General Family Medicine 01/04/24 documented as of this encounter Additional Source Comments The information contained in this document represents components of the legal health record. It is not the complete legal health record.[facility]
--- OUTSIDE RECORDS SUMMARY | 2025-03-25 15:51 | XMS_ITS | Clinical Summary ---
Author Organization [facility] Address [address] [place] [address] Phone Care Team Providers Care Railroad Maintenance Clerk Name Role Phone Rustam Key Primary Care [...] chili without beans, scrambled eggs, cottage cheese, Burundian yogurt, cauliflower rice, or you may place any food in the ethnology professor a food service director to create pureed food. 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/ZIP Co de Phone Number [address] [address] * (ABNORMAL) Lipid panel (05/28/2024 2:19 PM EST) HDL 61 mg/dL [facility] Comment: Interpretation <40 mg/dL: Low HDL cholesterol (major risk factor for CHD) Greater than or equal to 60 mg/dL: High HDL cholesterol ( negative risk factor for CHD) HDL - cholesterol is affected by a number of factors, e.g. smoking, excerise, hormones, sex and age. CHOLESTEROL 181 0 - 240 mg/dL [facility] TRIGLYCERIDES 101 30 - 160 mg/dL [facility] LDL 100 50 - 129 mg/dL [facility] Comment: LDL levels in terms of risk for coronary heart disease: <100 mg/dL: Optimal 100-129 mg/dL: Near or above optimal 130-159 mg/dL: Borderline high 160-189 mg/dL: High >190 mg/dL: Very High CARDIAC RISK RATIO 3.0(L) 3.3 - 4.4 C [facility] Blood 05/28/2024 2:19 PM EST 05/28/2024 2:29 PM EST us Sepideh Barrientos MD LAB BLOOD BKR ORDERABLES F inal Result Performing Organization Address [facility]/ZIP Co de Phone Number [address] [address] from Last 3 Months or Most Recently Relevant to Health Maintenance Insurance [facility] EMPLOYEES FAMILY EMPLOYEES FAMILY EMPLOYEES FAMILY EMPLOYEES FAMILY EMPLOYEES FAMILY EMPLOYEES FAMILY EMPLOYEES FAMILY EMPLOYEES FAMILY EMPLOYEES FAMILY Advance Directives For more information, please contact: [phone] (9AM - 5PM [place], Sunday-Sunday) * Full Code (Latest Code Status on File) Date Activated Date Inactivated Comments 01/03/2024 12:47 PM Question Answer Comments Code Status Confirmed With: Patient * Full Code Date Activated Date Inactivated Comments 01/03/2024 7:16 AM 01/03/2024 12:47 PM Question Answer Comments Code Status Confirmed With: Patient Care Teams Railroad Maintenance Clerk Relationship Specialty Start Date End Date Rustam Key DO [address] [address] PCP - General Family Medicine 01/04/24 Additional Source Comments The information contained in this document represents components of the legal health record. It is not the complete legal health record.[facility]
--- OUTSIDE RECORDS SUMMARY | 2025-03-25 15:51 | XMS_ITS | Encounter Summary ---
Author Organization [facility] Address [address] [place] [address] Phone Care Team Providers Care Crystal Report Developer Name Role Phone Radha Carroll MD Primary Care Provider [phone] Natalie Manning MD Primary Care Provider [phone] Rustam Key DO Primary Care Provider [phone] Reason for Referral * MRI/CAT Scan - Closed Specialty Diagnoses / Procedures Referred By Contac t Referred To Contact Procedures CT Abdomen Outside (No Interpretation) System, Provider Not In, PhD [employer] [address] [place] [address] Referral ID Status Reason Start Date Expiration Date Visits Re quested Visits Authorized [id number] Closed 09/04/2017 09/04/2018 1 1 Encounter Details Date Type Department Care Team (Late st Contact Info) Description 09/04/2017 Ancillary Orders [facility],Outside Imaging [address] [place] [address] System, Provider Not In, [place] [address] Social History Tobacco Use Types Packs/Day Years [...] on filedocumented in this encounter Care Teams Crystal Report Developer Relationship Specialty Start Date End Date Radha Carroll MD [email or web address] PCP - General Family Medicine 09/03/17 04/13/19 Natalie Manning MD [address] [place] [address] [email or web address] PCP - General Family Medicine 04/14/1901/02 Rustam Key DO [address] [address] PCP - General Family Medicine 01/04/24 documented as of this encounter Additional Source Comments The information contained in this document represents components of the legal health record. It is not the complete legal health record.[facility]
--- OUTSIDE RECORDS SUMMARY | 2025-03-25 15:51 | XMS_ITS | Encounter Summary ---
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 Not on file Not on file documented as of this encounter Functional Status * Calculated C-SSRS Risk Score (Lifetime/Recent) Answer Date of Assessment Author No Risk Indicated 01/03/2024 1:00 PM EDT Ramy Lynn RN * [place] Suicide Severity Rating Scale (Screener/Recent Self-Report) Question [...] documented as of this encounter Care Teams Civil Geotechnical Engineer Relationship Specialty Start Date End Date Natalie Manning MD [address] [place] [address] [email or web address] PCP - General Family Medicine 04/14/1901/02 Rustam Key DO [address] [address] PCP - General Family Medicine 01/04/24 documented as of this encounter Additional Source Comments The information contained in this document represents components of the legal health record. It is not the complete legal health record.[facility]
--- OUTSIDE RECORDS SUMMARY | 2025-03-25 15:52 | XMS_ITS | Encounter Summary ---
Author Organization [facility] Address [address] [place] [address] Phone Care Team Providers Care Olive Picker Name Role Phone Radha Carroll MD Primary Care Provider [phone] Natalie Manning MD Primary Care Provider [phone] Rustam Key DO Primary Care Provider + [phone] Encounter Details Date Type Department Care Team (Late st Contact Info) Description 09/04/2017 Procedure Pass [facility],Outside Imaging [address] [place], [place] [phone] Social History Tobacco Use Types Packs/Day Years [...] on filedocumented in this encounter Care Teams Olive Picker Relationship Specialty Start Date End Date Radha Carroll MD [email or web address] PCP - General Family Medicine 09/03/17 04/13/19 Natalie Manning MD [address] [place], [place] [id number] [email or web address] PCP - General Family Medicine 04/14/1901/02 [facility] [address] [address] PCP - General Family Medicine 01/04/24 documented as of this encounter Additional Source Comments The information contained in this document represents components of the legal health record. It is not the complete legal health record.[facility]
--- OUTSIDE RECORDS SUMMARY | 2025-03-25 15:52 | XMS_ITS | Encounter Summary ---
Author Organization [facility] Address [address] [place] [address] Phone Care Team Providers Care Recruiting Internship Name Role Phone Radha Carroll MD Primary Care Provider [phone] Natalie Manning MD Primary Care Provider [phone] Rustam Key DO Primary Care Provider [phone] Reason for Referral * Physical Therapy (Routine) - Closed Specialty Diagnoses / Procedures Referred By Larry ernandez Referred To Contact Physical Therapy Diagnoses Encounter for rehabilitation Natalie Manning MD Phone: tel: fax: mailto:[email or web address] [place] [address] Phone: tel: Referral ID Status Reason Start Date Expiration Date Visits Re quested Visits Authorized [id number] Closed 03/31/2019 05/20/2020 53 53 Encounter Details Date Type Department Care Team (Latest Contact Info) Description 03/31/2019 Transcribe Orders [facility] [address] [place] [address] Natalie Manning MD [address] [place], [place] [id number] [email or web address] Encounter for rehabilitation (Primary Dx) Social History [...] Diagnoses Orde r Schedule Ambulatory referral to [facility] Physical Therapy Outpatient Referral Routine Encounter for rehabilitation Ordered: 03/31/2019 documented as of this encounter Visit Diagnoses Diagnosis Encounter for rehabilitation- Primary documented in this encounter Care Teams Recruiting Internship Relationship Specialty Start Date End Date Radha Carroll MD [email or web address] PCP - General Family Medicine 09/03/17 04/13/19 Natalie Manning MD [address] [place] [address] [email or web address] PCP - General Family Medicine 04/14/[birth year]01/02 [place] [address] [address] PCP - General Family Medicine 01/04/24 documented as of this encounter Additional Source Comments The information contained in this document represents components of the legal health record. It is not the complete legal health record.[facility]
--- OUTSIDE RECORDS SUMMARY | 2025-03-25 15:52 | XMS_ITS | Encounter Summary ---
Author Organization [facility] Address [address] [place] [address] Phone Care Team Providers Care Bodywork Therapist Name Role Phone Radha Carroll MD Primary Care Provider [phone] Natalie Manning MD Primary Care Provider [phone] Rustam Key DO Primary Care Provider [phone] Encounter Details Date Type Department Care Team (Late st Contact Info) Description 09/03/2017 Procedure Pass [facility], [address] [address] Social History Tobacco Use Types Packs/Day Years [...] on filedocumented in this encounter Care Teams Bodywork Therapist Relationship Specialty Start Date End Date Radha Carroll MD [email or web address] PCP - General Family Medicine 09/03/17 04/13/19 Natalie Manning MD [address] [place] [address] [email or web address] PCP - General Family Medicine 04/14/1901/02 Rustam Key DO [address] [id number] PCP - General Family Medicine 01/04/24 documented as of this encounter Additional Source Comments The information contained in this document represents components of the legal health record. It is not the complete legal health record.[facility]
== END 2025-03-24 13:05 | disposition home or self-care (01) ==
LOC: HO.HOSX 13:04
PROVIDERS: Visit Provider Orthopaedic Surgery
DX: S52.614A Nondisplaced fracture of right ulna styloid process, initial encounter for closed fracture (principal); S52.571A Other intraarticular fracture of lower end of right radius, initial encounter for closed fracture; W01.198A Fall on same level from slipping, tripping and stumbling with subsequent striking against other object, initial encounter
CPT/HCPCS: 25600; 73110

== ENCOUNTER 2025-03-24 14:15 | Outpatient (AMB) | payer OTHER, SELFPAY ==
--- NOTE | 2025-03-24 14:34 | MHC.OFFVIS ---
Vital Signs 03/24/25 14:43 Height 5 ft Weight 135 lb BMI 26.4 Handedness Right Intake Visit Reasons: F/C RT Dis. Rad.& ulnar fx 03/20/25 Intake Note: Navya is a 64 year old right hand dominant woman who presents today for an emergency department follow up for her right hand injury, s/p fall DOI 03/20/2025. Patient reports tripping and landing on outstretched hands however the ulnar aspect of the right hand slammed against some rocks. Denies numbness and tingling now. She did have numbness in the right hand with her splint on but this resolved. Denies popping or locking of fingers. 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 Says she had some oxycodone from old sx that helped her with pain at night since that is when her symptoms are worse. Tylenol as needed for pain with some relief. Allergies No Known Allergies Allergy (Verified 03/20/25 16:07) HPI HPI F/C RT Dis. Rad.& ulnar fx 03/20/25: Details: Navya is a 64 year old right hand dominant woman who presents for a right distal radius & ulnar styloid fractures, S/P fall, DOI: 03/20/25. She was seen in the ED and placed in a sugar-tong splint. She is seen today with a female friend. She complains of pain in her wrist. She says she initially had some numbness & tingling but this improved after adjusting her splint, and may have been related. She is legally blind. 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 Review of Systems Const All systems reviewed & are unremarkable except as noted in HPI and below Physical Exam Vital Signs: BMI result Body Mass Index 26.4 Const General: cooperative, healthy appearing and no acute distress Orientation/consciousness: patient oriented x3 HEENT Head: Yes normocephalic and Yes atraumatic Eyes EOM: EOMs intact bilaterally Resp Effort & Inspection: normal respiratory effort and able to speak in complete sentences Cardio Jugular venous distension: no JVD Skin General skin exam: turgor normal Rashes: no rashes Neuro General: patient oriented x3 Extrem Other: Evaluation of Right Upper Extremity: The patient is alert, oriented, and in no acute distress Neuro: Median, Ulnar, Radial nerves motor and sensory intact and sensation is normal to the tips of all digits Vascular: Cap refill brisk ROM: With encouragement she could make a fist and extend all her digits Skin: No lacerations or abrasions. General: No Erythema or evidence of infection. Some swelling about the wrist & forearm Some ecchymosis about the wrist No tenderness about the elbow No tenderness with proximal forearm squeeze Most tender over the distal radius Radiographs: 3 views of the right wrist were taken and viewed by me today in clinic. They show a transverse distal radius fracture with intra-articular extension. This is a small loss of inclination, and she is at about neutral on the lateral view with a small amount of dorsal translation. There is also an ulnar styloid fracture with nondisplaced extension to the base of the styloid.. Psych Appearance: grossly normal Affect: normal affect Attitude: cooperative Assessment & Plan Assessment & Plan (1) Fracture of right distal radius: Code(s): S52.501A - Unspecified fracture of the lower end of right radius, initial encounter for closed fracture Category: Medical (2) Fracture of right ulnar styloid: Code(s): S52.611A - Displaced fracture of right ulna styloid process, initial encounter for closed fracture Category: Medical Plan Assessment & Plan: 1. Right distal radius fracture, comminuted intra-articular minimally displaced From a fall, DOI: 03/20/25 2. Right ulnar styloid fracture, nondisplaced From a fall, DOI: 03/20/25 I educated her about this condition I discussed operative and non-operative treatment options. I explained that she may require surgery but I am hopeful that she will do fine non-operatively. She was splinted today and will follow up in 1 week with new radiographs. I encouraged rest & elevating at or above heart level I discussed activity modifications, she is to lift nothing heavier than a pencil until next week. She will work on gentle finger ROM exercises at home. She is to avoid making a tight fist She works as a teacher, she was given a note to remain out of work for the next 3 weeks She will follow up next week, with X-rays, 3V R wrist, OOP. Depending on radiographs we will decide whether to proceed with an ORIF vs managing this in a cast. Scribed for Salud Horan MD by Juan Carlos Haider, medical records library professor, on 03/24/25 at 2:50 PM, EST. Orders: Orders XR wrist RT min 3V Today M25.531 - Pain in right wrist Coding Level of Care Code New Pt Level 4 (23045) Diagnoses Fracture of right distal radius S52.501A Fracture of right ulnar styloid S52.611A
[2025-03-24 14:43] VITALS: BMI 26.4
--- OUTSIDE RECORDS SUMMARY | 2025-03-24 17:15 | XMS_ITS | Encounter Summary ---
Author Organization [facility] Address [facility] [employer] [facility] [address] [place] [address] Phone Care Team Providers Care Bi Application Developer Name Role Phone Radha Carroll MD Primary Care Provider [phone] Natalie Manning MD Primary Care Provider [phone] Rustam Key DO Primary Care Provider [phone] Encounter Details Date Type Department Care Team (Late st Contact Info) Description 09/03/2017 Ancillary Orders Virtual Department [address] [place] [address] Radha Carroll MD 38 [facility] [address] [place] [address] [email or web address] Localized swelling, mass and lump, [...] unspecified documented in this encounter Care Teams Bi Application Developer Relationship Specialty Start Date End Date Radha Craroll MD [email or web address] PCP - General Family Medicine 09/03/17 04/13/19 Natalie Manning MD [address] [place] [id number] [email or web address] PCP - General Family Medicine 04/14/1899/02 [place] [address] [address] PCP - General Family Medicine 01/04/24 documented as of this encounter Additional Source Comments The information contained in this document represents components of the legal health record. It is not the complete legal health record.[facility]
--- OUTSIDE RECORDS SUMMARY | 2025-03-24 17:15 | XMS_ITS | Encounter Summary ---
Author Organization [facility] Address [address] [place] [address] Phone Care Team Providers Care Senior Firmware Engineer Name Role Phone Radha Carroll MD Primary Care Provider [phone] Natalie Manning MD Primary Care Provider [phone] Rustam Key DO Primary Care Provider [phone] Reason for Referral * Physical Therapy (Routine) - Closed Specialty Diagnoses / Procedures Referred By Larry ernandez Referred To Contact Physical Therapy Diagnoses Encounter for rehabilitation Natalie Manning MD Phone: tel: fax: [email or web address] [address] [place] [address] Phone: tel: Referral ID Status Reason Start Date Expiration Date Visits Re quested Visits Authorized [id number] Closed 03/31/2019 05/20/2020 53 53 Encounter Details Date Type Department Care Team (Latest Contact Info) Description 03/31/2019 Transcribe Orders [facility] [address] [place] [address] Natalie Manning MD [address] [place], [place] [id number] [email or web address] Encounter for rehabilitation (Primary Dx) Social History [...] Diagnoses Orde r Schedule Ambulatory referral to [facility] Physical Therapy Outpatient Referral Routine Encounter for rehabilitation Ordered: 03/31/2019 documented as of this encounter Visit Diagnoses Diagnosis Encounter for rehabilitation- Primary documented in this encounter Care Teams Senior Firmware Engineer Relationship Specialty Start Date End Date Radha Carroll MD [email or web address] PCP - General Family Medicine 09/03/17 04/13/19 Natalie Manning MD [address] [place] [address] [email or web address] PCP - General Family Medicine 04/14/1899/02 [place] [address] [address] PCP - General Family Medicine 01/04/24 documented as of this encounter Additional Source Comments The information contained in this document represents components of the legal health record. It is not the complete legal health record.[facility]
--- OUTSIDE RECORDS SUMMARY | 2025-03-24 17:15 | XMS_ITS | Encounter Summary ---
Author Organization [facility] Address [address] [place] [address] Phone Care Team Providers Care Clutch Specialist Name Role Phone Radha Carroll MD Primary Care Provider [phone] Natalie Manning MD Primary Care Provider [phone] Rustam Key DO Primary Care Provider [phone] Reason for Referral * MRI/CAT Scan - Closed Specialty Diagnoses / Procedures Referred By Contac t Referred To Contact Procedures CT Abdomen Outside (No Interpretation) System, Provider Not In, [facility] [employer] [address] [place] [address] Referral ID Status Reason Start Date Expiration Date Visits Re quested Visits Authorized [id number] Closed 09/04/2017 09/04/2018 1 1 Encounter Details Date Type Department Care Team (Late st Contact Info) Description 09/04/2017 Ancillary Orders [facility],Outside Imaging [address] [place] [address] System, Provider Not In, [place] [address] Social History Tobacco Use Types Packs/Day Years [...] on filedocumented in this encounter Care Teams Clutch Specialist Relationship Specialty Start Date End Date Radha Carroll MD [email or web address] PCP - General Family Medicine 09/03/17 04/13/19 Natalie Manning MD [address] [place] [address] [email or web address] PCP - General Family Medicine 04/14/1901/02 Rustam Key DO [address] [address] PCP - General Family Medicine 01/04/24 documented as of this encounter Additional Source Comments The information contained in this document represents components of the legal health record. It is not the complete legal health record.[facility]
--- OUTSIDE RECORDS SUMMARY | 2025-03-24 17:15 | XMS_ITS | Encounter Summary ---
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 Not on file Not on file documented as of this encounter Functional Status * Calculated C-SSRS Risk Score (Lifetime/Recent) Answer Date of Assessment Author No Risk Indicated 01/03/2024 1:00 PM EDT Ramy Lynn RN * [place] Suicide Severity Rating Scale (Screener/Recent Self-Report) Question [...] documented as of this encounter Care Teams Children'S Author Relationship Specialty Start Date End Date Natalie Manning MD [address] [place] [address] [email or web address] PCP - General Family Medicine [birth year]01[birth year]02 Rustam Key DO [address] [address] PCP - General Family Medicine 01/04/24 documented as of this encounter Additional Source Comments The information contained in this document represents components of the legal health record. It is not the complete legal health record.[facility]
--- OUTSIDE RECORDS SUMMARY | 2025-03-24 17:15 | XMS_ITS | Encounter Summary ---
Author Organization [facility] Address [address] [place] [address] Phone Care Team Providers Care Final Inspector And Tester Name Role Phone Radha Carroll MD Primary Care Provider [phone] Natalie Manning MD Primary Care Provider [phone] Rustam Key DO Primary Care Provider [phone] Encounter Details Date Type Department Care Team (Late st Contact Info) Description 09/04/2017 Procedure Pass [facility],Outside Imaging [address] [place], [place] [phone] Social History Tobacco Use Types Packs/Day Years [...] on filedocumented in this encounter Care Teams Final Inspector And Tester Relationship Specialty Start Date End Date Radha Carroll MD [email or web address] PCP - General Family Medicine 09/03/17 04/13/19 Natalie Manning MD [address] [place], [place] [phone] [email or web address] PCP - General Family Medicine 04/14/[birth year]01/02 [facility] [address] [address] PCP - General Family Medicine 01/04/24 documented as of this encounter Additional Source Comments The information contained in this document represents components of the legal health record. It is not the complete legal health record.[facility]
--- OUTSIDE RECORDS SUMMARY | 2025-03-24 17:16 | XMS_ITS | Clinical Summary ---
Author Organization [facility] Address [address] [place] [address] Phone Care Team Providers Care Fitting Room Checker Name Role Phone Rustam Key Primary Care [...] chili without beans, scrambled eggs, cottage cheese, Togolese yogurt, cauliflower rice, or you may place any food in the program engineer a hospital food service worker to create pureed food. 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 [...] this topic Medical Devices Implanted Type Area Briquette Machine Operator Helper Device Identifier Shelf Expiration Date Model / Serial / Lot [employer] NOD[employer] Mandible Description:Dental implants Procedures Procedure Name Priority Date/Time Associated Diagnosis Comments LIPID PANEL Routine 05/28/2024 2:19 PM EST Intestinal malabsorption following gastrectomy THYROID STIMULATING HORMONE (TSH) Routine 05/28/2024 2:19 PM EST Acquired hypothyroidism from Last 3 Months or Most Recently Relevant to Health Maintenance Results * TSH (05/28/2024 2:19 PM EST) TSH 0.46 0.27 - 4.20 uIU/mL [facility] Blood 05/28/2024 2:19 PM EST 05/28/2024 2:28 PM EST us Sepideh Barrientos MD LAB BLOOD BKR ORDERABLES F inal Result Performing Organization Address [facility]/ZIP Co de Phone Number [address] [address] * (ABNORMAL) Lipid panel (05/28/2024 2:19 PM EST) HDL 61 mg/dL [facility] Comment: Interpretation <40 mg/dL: Low HDL cholesterol (major risk factor for CHD) Greater than or equal to 60 mg/dL: High HDL cholesterol ( negative risk factor for CHD) HDL - cholesterol is affected by a number of factors, e.g. smoking, excerise, hormones, sex and age. CHOLESTEROL 181 0 - 240 mg/dL [facility] TRIGLYCERIDES 101 30 - 160 mg/dL [facility] LDL 100 50 - 129 mg/dL [facility] Comment: LDL levels in terms of risk for coronary heart disease: <100 mg/dL: Optimal 100-129 mg/dL: Near or above optimal 130-159 mg/dL: Borderline high 160-189 mg/dL: High >190 mg/dL: Very High CARDIAC RISK RATIO 3.0(L) 3.3 - 4.4 C [facility] Blood 05/28/2024 2:19 PM EST 05/28/2024 2:29 PM EST us Sepideh Barrientos MD LAB BLOOD BKR ORDERABLES F inal Result Performing Organization Address [facility]/ZIP Co de Phone Number [address] [address] from Last 3 Months or Most Recently Relevant to Health Maintenance Insurance [facility] [employer] FAMILY EMPLOYEES FAMILY EMPLOYEES FAMILY EMPLOYEES FAMILY EMPLOYEES FAMILY EMPLOYEES FAMILY EMPLOYEES FAMILY EMPLOYEES FAMILY EMPLOYEES FAMILY Advance Directives For more information, please contact: [phone] (9AM - 5PM [place], Sunday-Sunday) * Full Code (Latest Code Status on File) Date Activated Date Inactivated Comments 01/03/2024 12:47 PM Question Answer Comments Code Status Confirmed With: Patient * Full Code Date Activated Date Inactivated Comments 01/03/2024 7:16 AM 01/03/2024 12:47 PM Question Answer Comments Code Status Confirmed With: Patient Care Teams Fitting Room Checker Relationship Specialty Start Date End Date Rustam Key DO [address] [address] PCP - General Family Medicine 01/04/24 Additional Source Comments The information contained in this document represents components of the legal health record. It is not the complete legal health record.[facility]
--- OUTSIDE RECORDS SUMMARY | 2025-03-24 17:16 | XMS_ITS | Encounter Summary ---
Author Organization [facility] Address [address] [place] [address] Phone Care Team Providers Care Director Engineering Name Role Phone Radha Carroll MD Primary Care Provider [phone] Natalie Mannign MD Primary Care Provider [phone] Rustam Key DO Primary Care Provider [phone] Encounter Details Date Type Department Care Team (Late st Contact Info) Description 09/03/2017 Procedure Pass [facility], [address] [address] Social History Tobacco Use Types Packs/Day Years [...] on filedocumented in this encounter Care Teams Director Engineering Relationship Specialty Start Date End Date Radha Carroll MD [email or web address] PCP - General Family Medicine 09/03/17 04/13/19 Natalie Manning MD [address] [place] [address] [email or web address] PCP - General Family Medicine 04/14/1901/02 Rustam Key DO [address] [id number] PCP - General Family Medicine 01/04/24 documented as of this encounter Additional Source Comments The information contained in this document represents components of the legal health record. It is not the complete legal health record.[facility]
== END 2025-03-24 16:15 | disposition home or self-care (01) ==
LOC: HO.HOS 14:15
PROVIDERS: PCP Family Medicine; Visit Provider Orthopaedic Surgery
DX: S52.501A Unspecified fracture of the lower end of right radius, initial encounter for closed fracture (principal); S52.611A Displaced fracture of right ulna styloid process, initial encounter for closed fracture
CPT/HCPCS: 25600; 99204

== ENCOUNTER → 2025-03-24 14:16 | Outpatient (BNV) | payer OTHER, SELFPAY | PROVIDERS: Visit Provider Radiology Diagnostic Radiology | DX: M25.531 Pain in right wrist (principal) | CPT/HCPCS: 73110 ==

== ENCOUNTER 2025-04-01 09:15 | Outpatient (AMB) | payer OTHER, SELFPAY ==
--- NOTE | 2025-04-01 09:24 | MHC.OFFVIS ---
Intake Visit Reasons: OV-RT Dis. Rad.& ulnar fx 03/20/25 Intake Note: Navya is a 64 year old right hand dominant woman who presents today for a one week follow up of her right distal radial & ulnar fracture, status post fall on 03/20/25. Today patient reports that she is not sleeping well due to her discomfort. Complaints of pain at the dorsal aspect of her forearm, as well as her shoulder. No numbness or tingling, stating feels as if something is squeezing her arm. Allergies No Known Allergies Allergy (Verified 04/01/25 09:34) [facility] OV-RT Dis. Rad.& ulnar fx 03/20/25: Details: Navya is a 64 year old right hand dominant woman who returns for a right distal radius & ulnar styloid fractures, S/P fall, DOI: 03/20/25. She is seen today with a female friend. She complains of pain in her wrist & in her shoulder. She says she initially had some numbness & tingling but this improved after adjusting her splint, and may have been related. She denies any numbness or tingling at this time She is legally blind. 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 Review of Systems Const All systems reviewed & are unremarkable except as noted in HPI and below Physical Exam Const General: cooperative, healthy appearing and no acute distress Orientation/consciousness: patient oriented x3 HEENT Head: Yes normocephalic and Yes atraumatic Eyes EOM: EOMs intact bilaterally Resp Effort & Inspection: normal respiratory effort and able to speak in complete sentences Cardio Jugular venous distension: no JVD Skin General skin exam: turgor normal Rashes: no rashes Neuro General: patient oriented x3 Extrem Other: Evaluation of Right Upper Extremity: The patient is alert, oriented, and in no acute distress Neuro: Median, Ulnar, Radial nerves motor and sensory intact and sensation is normal to the tips of all digits, with some decreased sensation to the tip of the thumb today in clinic Vascular: Cap refill brisk ROM: With encouragement she could make a fist and extend all her digits Resolving swelling about the wrist & forearm Resolving ecchymosis about the wrist No tenderness about the elbow No tenderness with proximal forearm squeeze Most tender over the distal radius Some tenderness over the soft tissues just distal to the ulna Radiographs: 3 views of the right wrist were taken and viewed by me today in clinic. They show a transverse distal radius fracture with intra-articular extension. This is a small loss of inclination, and she is at about ~5 degrees apex volar angulation, with a small amount of dorsal translation. There is also an ulnar styloid fracture with nondisplaced extension to the base of the styloid.. Psych Appearance: grossly normal Affect: normal affect Attitude: cooperative Office Procedures AMB Fracture Care Details: Fracture care distal radius fracture [id number] Fracture Billing Code: Fracture Billing Code Assessment & Plan Assessment & Plan (1) Fracture of right distal radius: Code(s): S52.501A - Unspecified fracture of the lower end of right radius, initial encounter for closed fracture Category: Medical (2) Fracture of right ulnar styloid: Code(s): S52.611A - Displaced fracture of right ulna styloid process, initial encounter for closed fracture Category: Medical Plan Assessment & Plan: 1. Right distal radius fracture, comminuted intra-articular minimally displaced From a fall, DOI: 03/20/25 2. Right ulnar styloid fracture, nondisplaced From a fall, DOI: 03/20/25 I educated her about this condition I discussed operative and non-operative treatment options. She has had some slight movement of her fracture site since her last appointment, but I would continue to recommend we manage this in a cast. She was placed in a short arm cast, to be worn for the next 2-3 weeks. I encouraged rest & elevating at or above heart level I discussed activity modifications, she is to lift nothing heavier than a cellphone for the next 4 weeks. They should also avoid any heavy impact activities, falls, or sports activities for the next 6 weeks She will perform gentle ROM exercises at home, and avoid making a tight fist She works as a teacher, she currently has a note keeping her out of work until 04/14/25. She may return to work after that on light duty with a 2 lb weight limit. 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 She will follow up in 3 weeks, with X-rays, 3V R wrist, OOP. Scribed for Salud Horan MD by Juan Carlos Lubanszky, medical transcription editor, on 04/01/25 at 9:40 AM, EST. Orders: Orders XR wrist RT min 3V Today M25.531 - Pain in right wrist Coding Level of Care Code Est Pt Level 4 (537[address]) Diagnoses Fracture of right distal radius S52.501A Fracture of right ulnar styloid S52.611A CPT Codes Fracture Care - Fracture Billing Code: Fracture Billing Code ([id number])
--- OUTSIDE RECORDS SUMMARY | 2025-04-01 10:11 | XMS_ITS | Encounter Summary ---
Author Organization [facility] Address [address] [place] [address] Phone Care Team Providers Care Ammonium Nitrate Neutralizer Name Role Phone Radha Carroll MD Primary Care Provider [phone] Natalie Manning MD Primary Care Provider [phone] Rustam Key DO Primary Care Provider [phone] Encounter Details Date Type Department Care Team (Late st Contact Info) Description 09/04/2017 Procedure Pass [facility],Outside Imaging [address] [place], [place] [id number] Social History Tobacco Use Types Packs/Day Years [...] on filedocumented in this encounter Care Teams Ammonium Nitrate Neutralizer Relationship Specialty Start Date End Date Radha Carroll MD [email or web address] PCP - General Family Medicine 09/03/17 04/13/19 Natalie Manning MD [address] [place], [place] [phone] [email or web address] PCP - General Family Medicine 04/14/1901/02 Rustam Key DO [facility] [address] [address] PCP - General Family Medicine 01/04/24 documented as of this encounter Additional Source Comments The information contained in this document represents components of the legal health record. It is not the complete legal health record.[facility]
--- OUTSIDE RECORDS SUMMARY | 2025-04-01 10:11 | XMS_ITS | Encounter Summary ---
Author Organization [facility] Address [address] [place] [address] Phone Care Team Providers Care Chipper Operator Name Role Phone Radha Carroll MD Primary Care Provider [phone] Natalie Manning MD Primary Care Provider [phone] Rustam Key DO Primary Care Provider [phone] Encounter Details Date Type Department Care Team (Late st Contact Info) Description 09/03/2017 Procedure Pass [facility], [address] [address] Social History Tobacco Use Types Packs/Day Years [...] on filedocumented in this encounter Care Teams Chipper Operator Relationship Specialty Start Date End Date Radha Carroll MD [email or web address] PCP - General Family Medicine 09/03/17 04/13/19 Natalie Manning MD [address] [place] [address] [email or web address] PCP - General Family Medicine 04/14/1901/02 Rustam Key DO [address] [phone] PCP - General Family Medicine 01/04/24 documented as of this encounter Additional Source Comments The information contained in this document represents components of the legal health record. It is not the complete legal health record.[facility]
--- OUTSIDE RECORDS SUMMARY | 2025-04-01 10:11 | XMS_ITS | Encounter Summary ---
Author Organization [facility] Address [address] [place] [address] Phone Care Team Providers Care Aircraft Tool Maker Name Role Phone Radha Carroll MD Primary Care Provider [phone] Natalie Manning MD Primary Care Provider [phone] Rustam Key DO Primary Care Provider [phone] Reason for Referral * Physical Therapy (Routine) - Closed Specialty Diagnoses / Procedures Referred By Larry ernandez Referred To Contact Physical Therapy Diagnoses Encounter for rehabilitation Natalie Manning MD Phone: tel: fax: mailto:[email or web address] [address] [place] [address] Phone: tel: Referral ID Status Reason Start Date Expiration Date Visits Re quested Visits Authorized [id number] Closed 03/31/2019 05/20/2020 53 53 Encounter Details Date Type Department Care Team (Latest Contact Info) Description 03/31/2019 Transcribe Orders [facility] [address] [place] [address] Natalie Manning MD [address] [place], [place] [phone] [email or web address] Encounter for rehabilitation (Primary Dx) Social History [...] Diagnoses Orde r Schedule Ambulatory referral to [facility] Physical Therapy Outpatient Referral Routine Encounter for rehabilitation Ordered: 03/31/2019 documented as of this encounter Visit Diagnoses Diagnosis Encounter for rehabilitation- Primary documented in this encounter Care Teams Aircraft Tool Maker Relationship Specialty Start Date End Date Radha Carroll MD [email or web address] PCP - General Family Medicine 09/03/17 04/13/19 Natalie Manning MD [address] [place] [address] [email or web address] PCP - General Family Medicine 04/14/1901/02 [place] [address] [address] PCP - General Family Medicine 01/04/24 documented as of this encounter Additional Source Comments The information contained in this document represents components of the legal health record. It is not the complete legal health record.[facility]
--- OUTSIDE RECORDS SUMMARY | 2025-04-01 10:11 | XMS_ITS | Encounter Summary ---
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 Not on fi le Not on file Not on file documented as of this encounter Functional Status * Calculated C-SSRS Risk Score (Lifetime/Recent) Answer Date of Assessment Author No Risk Indicated 01/03/2024 1:00 PM EDT Ramy Lynn RN * [place] Suicide Severity Rating Scale (Screener/Recent Self-Report) Question [...] documented as of this encounter Care Teams Monotype Setter Relationship Specialty Start Date End Date Natalie Manning MD [address] [place] [address] [email or web address] PCP - General Family Medicine 04/14/1901/02 Rustam Key DO [address] [address] PCP - General Family Medicine 01/04/24 documented as of this encounter Additional Source Comments The information contained in this document represents components of the legal health record. It is not the complete legal health record.[facility]
--- OUTSIDE RECORDS SUMMARY | 2025-04-01 10:11 | XMS_ITS | Encounter Summary ---
Author Organization [facility] Address [facility] [employer] [facility] [address] [place] [address] Phone Care Team Providers Care Sap Grc Security Name Role Phone Radha Carroll MD Primary Care Provider [phone] Natalie Manning MD Primary Care Provider [phone] Rustam Key DO Primary Care Provider [phone] Encounter Details Date Type Department Care Team (Late st Contact Info) Description 09/03/2017 Ancillary Orders Virtual Department 30 [place] [address] Radha Carroll MD 38 [facility] [address] [place] [address] [email or web address] Localized swelling, mass and lump, unspecified [...] Alisia Raines on 09/06/2017 8:49 AM Radha Carorll MD IMG MR ABDOMEN Final Result documented in this encounter Visit Diagnoses Diagnosis Localized swelling, mass and lump, unspecified Localized swelling, mass and lump, unspecified documented in this encounter Care Teams Sap Grc Security Relationship Specialty Start Date End Date Radha Carroll MD [email or web address] PCP - General Family Medicine 09/03/17 04/13/19 Natalie Manning MD [address] [place] [address] [email or web address] PCP - General Family Medicine 04/14/1899/02 [place] [address] [address] PCP - General Family Medicine 01/04/24 documented as of this encounter Additional Source Comments The information contained in this document represents components of the legal health record. It is not the complete legal health record.[facility]
--- OUTSIDE RECORDS SUMMARY | 2025-04-01 10:11 | XMS_ITS | Encounter Summary ---
Author Organization [facility] Address [address] [place] [address] Phone Care Team Providers Care College Or University Registrar Name Role Phone Radha Carroll MD Primary Care Provider [phone] Natalie Manning MD Primary Care Provider [phone] Rustam Key DO Primary Care Provider [phone] Reason for Referral * MRI/CAT Scan - Closed Specialty Diagnoses / Procedures Referred By Contac t Referred To Contact Procedures CT Abdomen Outside (No Interpretation) System, Provider Not In, PhD [employer] [address] [place] [address] Referral ID Status Reason Start Date Expiration Date Visits Re quested Visits Authorized [id number] Closed 09/04/2017 09/04/2018 1 1 Encounter Details Date Type Department Care Team (Late st Contact Info) Description 09/04/2017 Ancillary Orders [facility],Outside Imaging 30 [place] [address] System, Provider Not In, [place] [address] Social History Tobacco Use Types Packs/Day Years [...] on filedocumented in this encounter Care Teams College Or University Registrar Relationship Specialty Start Date End Date Radha Carroll MD [email or web address] PCP - General Family Medicine 09/03/17 04/13/19 Natalie Manning MD [address] [place] [address] [email or web address] PCP - General Family Medicine 04/14/1901/02 Rustam Key DO [address] [address] PCP - General Family Medicine 01/04/24 documented as of this encounter Additional Source Comments The information contained in this document represents components of the legal health record. It is not the complete legal health record.[facility]
--- OUTSIDE RECORDS SUMMARY | 2025-04-01 10:11 | XMS_ITS | Clinical Summary ---
Author Organization [facility] Address [address] [place] [address] Phone Care Team Providers Care Front Office Associate Name Role Phone Rustam Key Primary Care [...] chili without beans, scrambled eggs, cottage cheese, Croatian yogurt, cauliflower rice, or you may place any food in the filler blender a food processing chemist to create pureed food. 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 Not [...] PAP SMEAR 1983 MAMMOGRAM 2002 COLOGUARD 2007 FIT TEST 2007 FOBT 2007 SIGMOIDOSCOPY [...] 006 SCREENING FOR DIABETES 05/28/2027 05/28/2024, 2024 COLONOSCOPY 01/05/2028 09/19/2023 COLORECTAL CANCER SCREENING 01/05/2028 LIPID PANEL 05/28/2029 05/28/2024, 10/27/2023 SMOKING STATUS SCREENING (Once After 26 Yrs) Completed 02/17/2025 HEPATITIS A VACCINES Aged Out No long er eligible based on patient's age to complete this topic HIB VACCINES Aged Out No longer eligi ble based on patient's age to complete this topic IPV VACCINES Aged Out No longer eligi ble based on patient's age to complete this topic MENINGOCOCCAL VACCINES (ACWY) Aged Out No longer eligible based on patient's age to complete this topic MENINGOCOCCAL VACCINES (B) Aged Out N o longer eligible based on patient's age to complete this topic Medical Devices Implanted Type Area B2B Sales Professional Device Identifier Shelf Expiration Date Model / Serial / Lot Nodata NODATA Mandible Description:Dental implants Procedures Procedure Name Priority Date/Time Associated Diagnosis Comments LIPID PANEL Routine 05/28/2024 2:19 PM EST Intestinal malabsorption following gastrectomy THYROID STIMULATING HORMONE (TSH) Routine 05/28/2024 2:19 PM EST Acquired hypothyroidism HM COLONOSCOPY FOR RESULT ENTRY ONLY Routine 09/19/2023 from Last 3 Months or Most Recently Relevant to Health Maintenance Results * TSH (05/28/2024 2:19 PM EST) TSH 0.46 0.27 - 4.20 uIU/mL [facility] Blood 05/28/2024 2:19 PM EST 05/28/2024 2:28 PM EST Sepideh Barrientos MD LAB BLOOD BKR ORDERABLES F inal Result Performing Organization Address [facility] Co de Phone Number [address] [address] * (ABNORMAL) Lipid panel (05/28/2024 2:19 PM EST) HDL 61 mg/dL [facility] Comment: Interpretation <40 mg/dL: Low HDL cholesterol (major risk factor for CHD) Greater than or equal to 60 mg/dL: High HDL cholesterol ( negative risk factor for CHD) HDL - cholesterol is affected by a number of factors, e.g. smoking, excerise, hormones, sex and age. CHOLESTEROL 181 0 - 240 mg/dL [facility] TRIGLYCERIDES 101 30 - 160 mg/dL [facility] LDL 100 50 - 129 mg/dL [facility] Comment: LDL levels in terms of risk for coronary heart disease: <100 mg/dL: Optimal 100-129 mg/dL: Near or above optimal 130-159 mg/dL: Borderline high 160-189 mg/dL: High >190 mg/dL: Very High CARDIAC RISK RATIO 3.0(L) 3.3 - 4.4 [facility] Blood 05/28/2024 2:19 PM EST 05/28/2024 2:29 PM EST Sepideh Barrientos MD LAB BLOOD BKR ORDERABLES F inal Result Performing Organization Address City/[facility]/ZIP Co de Phone Number [address] [address] * COLONOSCOPY FOR RESULT ENTRY ONLY (09/19/2023) HM Colonoscopy External Delphine Miramontes MD HEALTH MAINTENANCE Final Result from Last 3 Months or Most Recently Relevant to Health Maintenance Insurance EMPLOYEES FAMILY EMPLOYEES FAMILY EMPLOYEES FAMILY EMPLOYEES FAMILY EMPLOYEES FAMILY EMPLOYEES FAMILY EMPLOYEES FAMILY EMPLOYEES [place] [address] EMPLOYEES FAMILY Advance Directives For more information, please contact: [phone] (9AM - 5PM [place], Sunday-Sunday) * Full Code (Latest Code Status on File) Date Activated Date Inactivated Comments 01/03/2024 12:47 PM Question Answer Comments Code Status Confirmed With: Patient * Full Code Date Activated Date Inactivated Comments 01/03/2024 7:16 AM 01/03/2024 12:47 PM Question Answer Comments Code Status Confirmed With: Patient Care Teams Front Office Associate Relationship Specialty Start Date End Date Rustam Key DO [address] [address] PCP - General Family Medicine 01/04/24 Additional Source Comments The information contained in this document represents components of the legal health record. It is not the complete legal health record.[facility]
== END 2025-04-01 10:39 | disposition home or self-care (01) ==
LOC: HO.HOS 09:16
PROVIDERS: Visit Provider Orthopaedic Surgery
DX: S52.501A Unspecified fracture of the lower end of right radius, initial encounter for closed fracture (principal); S52.611A Displaced fracture of right ulna styloid process, initial encounter for closed fracture
CPT/HCPCS: 29075; 99024

== ENCOUNTER → 2025-04-01 09:17 | Outpatient (BNV) | payer OTHER, SELFPAY | PROVIDERS: Visit Provider Radiology Diagnostic Ultrasound | DX: S52.571A Other intraarticular fracture of lower end of right radius, initial encounter for closed fracture (principal); M79.89 Other specified soft tissue disorders | CPT/HCPCS: 73110 ==

== ENCOUNTER 2025-04-01 14:23 | Outpatient (REF) | payer OTHER, SELFPAY ==
--- NOTE | ~2025-04-01 | XR_ITS ---
EXAMINATION: XR WRIST, RIGHT CLINICAL INFORMATION: M25.531 - Pain in right wrist COMPARISON: X-ray 03/24/2025 TECHNIQUE: PA, lateral, and oblique views of the right wrist. FINDINGS: Comminuted intra-articular distal radial fracture, minimally displaced, is stable in alignment. Slight decreased conspicuity of the fracture planes. No significant callus/new bone formation. Small ossification distal to the ulna styloid process, from age-indeterminate trauma. Possible undisplaced fracture of the ulnar styloid process otherwise seen. Soft tissue swelling. Radiocarpal alignment is maintained. Mild first CMC arthritis. No new acute fracture seen. XR/XR wrist RT min 3V IMPRESSION: Intra-articular comminuted distal radial fracture, with mild decreased conspicuity of the fracture plane. Possible undisplaced styloid fracture. Small ossification distal to the ulna styloid process, stable, from indeterminate fracture. Soft tissue swelling. Electronically signed by: Alexandr Whalen MD 04/01/2025 04:31 PM [facility]
--- OUTSIDE RECORDS SUMMARY | 2025-04-02 17:51 | XMS_ITS | Encounter Summary ---
Author Organization [facility] Address [address] [place] [address] Phone Care Team Providers Care Oysterman Name Role Phone Radha Carroll MD Primary Care Provider [phone] Natalie Manning MD Primary Care Provider [phone] Rustam Kye DO Primary Care Provider [phone] Reason for Referral * MRI/CAT Scan - Closed Specialty Diagnoses / Procedures Referred By Contac t Referred To Contact Procedures CT Abdomen Outside (No Interpretation) System, Provider Not In, PhD Partners [employer] [address] [place] [address] Referral ID Status Reason Start Date Expiration Date Visits Re quested Visits Authorized [id number] Closed 09/04/2017 09/04/2018 1 1 Encounter Details Date Type Department Care Team (Late st Contact Info) Description 09/04/2017 Ancillary Orders [facility],Outside Imaging [address] [place] [address] System, Provider Not In, PhD [place] [address] Social History Tobacco Use Types Packs/Day Years [...] on filedocumented in this encounter Care Teams Oysterman Relationship Specialty Start Date End Date Radha Carroll MD [email or web address] PCP - General Family Medicine 09/03/17 04/13/19 Natalie Manning MD [address] [place] [address] [email or web address] PCP - General Family Medicine 04/14/1901/02 Rustam Kye DO [address] [address] PCP - General Family Medicine 01/04/24 documented as of this encounter Additional Source Comments The information contained in this document represents components of the legal health record. It is not the complete legal health record.[facility]
--- OUTSIDE RECORDS SUMMARY | 2025-04-02 17:51 | XMS_ITS | Encounter Summary ---
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 on fi le Not on file Not on file documented as of this encounter Functional Status * Calculated C-SSRS Risk Score (Lifetime/Recent) Answer Date of Assessment Author No Risk Indicated 01/03/2024 1:00 PM EDT Ramy Lynn RN * [place] Suicide Severity Rating Scale (Screener/Recent Self-Report) Question [...] documented as of this encounter Care Teams Self Pay Collector Relationship Specialty Start Date End Date Natalie Manning MD [address] [place] [address] [email or web address] PCP - General Family Medicine 04/14/1901/02 Rustam Key DO [address] [address] PCP - General Family Medicine 01/04/24 documented as of this encounter Additional Source Comments The information contained in this document represents components of the legal health record. It is not the complete legal health record.[facility]
--- OUTSIDE RECORDS SUMMARY | 2025-04-02 17:51 | XMS_ITS | Encounter Summary ---
Author Organization [facility] Address [address] [place] [address] Phone Care Team Providers Care Infrastructure Administrator Name Role Phone Radha Carroll MD Primary Care Provider [phone] Natalie Manning MD Primary Care Provider [phone] Rustam Key DO Primary Care Provider [phone] Encounter Details Date Type Department Care Team (Late st Contact Info) Description 09/04/2017 Procedure Pass [facility],Outside Imaging [address] [place], [place] [address] Social History Tobacco Use Types Packs/Day Years [...] on filedocumented in this encounter Care Teams Infrastructure Administrator Relationship Specialty Start Date End Date Radha Carroll MD [email or web address] PCP - General Family Medicine 09/03/17 04/13/19 Natalie Manning MD [address] [place], [place] [address] [email or web address] PCP - General Family Medicine 04/14/1901/02 [facility] [address] [address] PCP - General Family Medicine 01/04/24 documented as of this encounter Additional Source Comments The information contained in this document represents components of the legal health record. It is not the complete legal health record.[facility]
--- OUTSIDE RECORDS SUMMARY | 2025-04-02 17:51 | XMS_ITS | Encounter Summary ---
Author Organization [facility] Address [facility] [employer] [facility] [address] [place] [address] Phone Care Team Providers Care Manager Rn Name Role Phone Radha Carroll MD Primary Care Provider [phone] Natalie Manning MD Primary Care Provider [phone] Rustam Key DO Primary Care Provider [phone] Encounter Details Date Type Department Care Team (Late st Contact Info) Description 09/03/2017 Ancillary Orders Virtual Department 30 [place] [address] Radha Carroll MD 38 [facility] [address] [place] [address] [email or web address] Localized swelling, mass and lump, [...] unspecified documented in this encounter Care Teams Manager Rn Relationship Specialty Start Date End Date Radha Carroll MD [email or web address] PCP - General Family Medicine 09/03/17 04/13/19 Natalie Manning MD [address] [place] [address] [email or web address] PCP - General Family Medicine 04/14/1901/02 [place] [address] [address] PCP - General Family Medicine 01/04/24 documented as of this encounter Additional Source Comments The information contained in this document represents components of the legal health record. It is not the complete legal health record.[facility]
--- OUTSIDE RECORDS SUMMARY | 2025-04-02 17:52 | XMS_ITS | Encounter Summary ---
Author Organization [facility] Address [address] [place] [address] Phone Care Team Providers Care Outpatient Interviewing Clerk Name Role Phone Radha Carroll MD Primary Care Provider [phone] Natalie Manning MD Primary Care Provider [phone] Rustam Key DO Primary Care Provider [phone] Reason for Referral * Physical Therapy (Routine) - Closed Specialty Diagnoses / Procedures Referred By Larry ernandez Referred To Contact Physical Therapy Diagnoses Encounter for rehabilitation Natalie Manning MD Phone: tel: fax: [email or web address] [address] [place] [address] Phone: tel: Referral ID Status Reason Start Date Expiration Date Visits Re quested Visits Authorized [id number] Closed 03/31/2019 05/20/2020 53 53 Encounter Details Date Type Department Care Team (Latest Contact Info) Description 03/31/2019 Transcribe Orders [facility] [address] [place] [address] Natalie Manning MD [address] [place], [place] [id number] [email or web address] Encounter for rehabilitation (Primary Dx) Social History [...] Diagnoses Orde r Schedule Ambulatory referral to [facility] Physical Therapy Outpatient Referral Routine Encounter for rehabilitation Ordered: 03/31/2019 documented as of this encounter Visit Diagnoses Diagnosis Encounter for rehabilitation- Primary documented in this encounter Care Teams Outpatient Interviewing Clerk Relationship Specialty Start Date End Date Radha Carroll MD [email or web address] PCP - General Family Medicine 09/03/17 04/13/19 Natalie Manning MD [address] [place] [address] [email or web address] PCP - General Family Medicine 04/14/1901/02 [place] [address] [address] PCP - General Family Medicine 01/04/24 documented as of this encounter Additional Source Comments The information contained in this document represents components of the legal health record. It is not the complete legal health record.[facility]
--- OUTSIDE RECORDS SUMMARY | 2025-04-02 17:52 | XMS_ITS | Clinical Summary ---
Author Organization [facility] Address [address] [place] [address] Phone Care Team Providers Care Client Services Administrator Name Role Phone Rustam Key Primary Care Provider [phone] Allergies No known active allergies Medications montelukast [...] chili without beans, scrambled eggs, cottage cheese, Malian yogurt, cauliflower rice, or you may place any food in the slurry blender a food selector to create pureed food. 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 [...] this topic Medical Devices Implanted Type Area Train Gate Attendant Device Identifier Shelf Expiration Date Model / [...] EST) TSH 0.46 0.27 - 4.20 uIU/mL [facility] Blood 05/28/2024 2:19 PM EST 05/28/2024 2:28 PM EST Sepideh Barrientos MD LAB BLOOD BKR ORDERABLES F inal Result Performing Organization Address [facility] Co de Phone Number [address] [address] * (ABNORMAL) Lipid panel (05/28/2024 2:19 PM EST) HDL 61 mg/dL [facility] Comment: Interpretation <40 mg/dL: Low HDL cholesterol (major risk factor for CHD) Greater than or equal to 60 mg/dL: High HDL cholesterol ( negative risk factor for CHD) HDL - cholesterol is affected by a number of factors, e.g. smoking, excerise, hormones, sex and age. CHOLESTEROL 181 0 - 240 mg/dL [facility] TRIGLYCERIDES 101 30 - 160 mg/dL [facility] LDL 100 50 - 129 mg/dL [facility] Comment: LDL levels in terms of risk for coronary heart disease: <100 mg/dL: Optimal 100-129 mg/dL: Near or above optimal 130-159 mg/dL: Borderline high 160-189 mg/dL: High >190 mg/dL: Very High CARDIAC RISK RATIO 3.0(L) 3.3 - 4.4 [facility] Blood 05/28/2024 2:19 PM EST 05/28/2024 2:29 PM EST Sepideh Barrientos MD LAB BLOOD BKR ORDERABLES F inal Result Performing Organization Address City/[facility]/ZIP Co de Phone Number [address] [address] * COLONOSCOPY FOR RESULT ENTRY ONLY (09/19/2023) HM Colonoscopy External Delphine Miramontes MD HEALTH MAINTENANCE Final Result from Last 3 Months or Most Recently Relevant to Health Maintenance Insurance EMPLOYEES FAMILY EMPLOYEES FAMILY EMPLOYEES FAMILY EMPLOYEES FAMILY EMPLOYEES FAMILY EMPLOYEES FAMILY EMPLOYEES FAMILY EMPLOYEES [place] [address] EMPLOYEES FAMILY Advance Directives For more information, please contact: [phone] (9AM - 5PM [place], Sunday-Sunday) * Full Code (Latest Code Status on File) Date Activated Date Inactivated Comments 01/03/2024 12:47 PM Question Answer Comments Code Status Confirmed With: Patient * Full Code Date Activated Date Inactivated Comments 01/03/2024 7:16 AM 01/03/2024 12:47 PM Question Answer Comments Code Status Confirmed With: Patient Care Teams Client Services Administrator Relationship Specialty Start Date End Date Rustam Key DO [address] [address] PCP - General Family Medicine 01/04/24 Additional Source Comments The information contained in this document represents components of the legal health record. It is not the complete legal health record.[facility]
--- OUTSIDE RECORDS SUMMARY | 2025-04-02 17:52 | XMS_ITS | Encounter Summary ---
Author Organization [facility] Address [address] [place] [address] Phone Care Team Providers Care Middle School Guidance Counselor Name Role Phone Radha Carroll MD Primary Care Provider [phone] Natalie Manning MD Primary Care Provider [phone] Rustam Key DO Primary Care Provider [phone] Encounter Details Date Type Department Care Team (Late st Contact Info) Description 09/03/2017 Procedure Pass [facility], [address] [address] Social History Tobacco Use Types Packs/Day Years [...] on filedocumented in this encounter Care Teams Middle School Guidance Counselor Relationship Specialty Start Date End Date Radha Carroll MD [email or web address] PCP - General Family Medicine 09/03/17 04/13/19 Natalie Manning MD [address] [place] [address] [email or web address] PCP - General Family Medicine 04/14/1901/02 Rustam Key DO [address] [id number] PCP - General Family Medicine 01/04/24 documented as of this encounter Additional Source Comments The information contained in this document represents components of the legal health record. It is not the complete legal health record.[facility]
== END 2025-04-01 14:24 | disposition home or self-care (01) ==
LOC: HO.HOSX 14:23
PROVIDERS: Visit Provider Orthopaedic Surgery
DX: S52.501D Unspecified fracture of the lower end of right radius, subsequent encounter for closed fracture with routine healing (principal); S52.611D Displaced fracture of right ulna styloid process, subsequent encounter for closed fracture with routine healing; W19.XXXD Unspecified fall, subsequent encounter
CPT/HCPCS: 29075; 73110

== ENCOUNTER 2025-04-08 14:02 | Outpatient (REF) | payer OTHER, SELFPAY ==
--- NOTE | ~2025-04-08 | XR_ITS ---
EXAMINATION: XR WRIST 3 OR MORE VIEWS RIGHT HISTORY: M25.531 - Pain in right wrist COMPARISON: Comparison is made with the prior examination dated 04/01/2025. FINDINGS: Three casted views of the right wrist are submitted. The fiberglass cast obscures fine bony detail. Again seen is a comminuted intra-articular fracture of the distal radius. A tiny osseous density is again seen adjacent to the ulnar styloid. The joint spaces are preserved. The soft tissues are unremarkable. XR/XR wrist RT min 3V IMPRESSION: Fractures of the distal radial metaphysis and ulnar styloid without significant change. Electronically signed by: Martin Valentino MD 04/08/2025 02:53 PM EST
== END 2025-04-08 14:03 | disposition home or self-care (01) ==
LOC: HO.HOSX 14:02
PROVIDERS: Visit Provider Orthopaedic Surgery
DX: S52.501D Unspecified fracture of the lower end of right radius, subsequent encounter for closed fracture with routine healing (principal); S52.611D Displaced fracture of right ulna styloid process, subsequent encounter for closed fracture with routine healing; X58.XXXD Exposure to other specified factors, subsequent encounter
CPT/HCPCS: 73110

== ENCOUNTER 2025-04-08 14:02 | Outpatient (AMB) | payer OTHER, SELFPAY ==
--- NOTE | 2025-04-08 14:07 | A.OFFVIS_ITS ---
Vital Signs 04/08/25 14:24 Height 5 ft Weight 135 lb BMI 26.4 Intake Visit Reasons: OV-RT Dis. Rad.& ulnar fx 03/20/25-cast change Intake Note: Navya is a 64 year old female who presents today for a cast change for her right Dis. Rad.& ulnar fx 03/20/25. Patient states that the right elbow pain is still radiating into the right shoulder. Patient states that on the dorsal side of her right wrist is still having sharp to dull pain. States yesterday she felt a pop x2 in her ulnar aspect of wrist. States she didnot have an increase of pain, no numbness or tingling. Also states her cast is loose. Allergies No Known Allergies Allergy (Verified 04/08/25 14:26) HPI HPI OV-RT Dis. Rad.& ulnar fx 03/20/25-cast change: Details: The patient is a 64-year-old erxbp-glji-kdshgpip woman who sustained right distal radius and ulnar styloid fractures in a fall. D.O. I 03/20/2025. She was last seen by me 04/01/2025 and placed in a short-arm cast. She returns today because she felt a crack or a pop in the ulnar aspect of her wrist within her cast to times. She denies any kind of fall or injury since her last visit. She denies having trouble with numbness and tingling. She is legally blind. 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 [facility] Medical History (Updated 04/08/25 @ 14:27 by DIANE Chowdary) Acute hemorrhoid Surgical History (Updated 04/08/25 @ 14:27 by DIANE Chowdary) H/O bariatric surgery Social History Current occupational status: employed Current occupation: rt hand / teacher Physical Exam Extrem Other: The patient was alert oriented and in no acute distress. Her right short-arm cast was clean dry and intact. She had good active flexion and extension of her digits. Sensation intact Cap refill brisk We removed her short-arm cast. Her fracture it is much less tender to palpation today. She had some mild tenderness to palpation just proximal to the mid point of the ulnar shaft. She was able to bring her hand from about 60 degrees of pronation to about 60 degrees of supination without any problems. Radiographs: Three views of the right wrist were taken within her cast today and reviewed by me in clinic: They show the same distal radius fracture with no change in alignment. No evidence of fracture in the mid ulnar shaft where she was having some tenderness Assessment & Plan Assessment & Plan (1) Fracture of right distal radius: Code(s): S52.501A - Unspecified fracture of the lower end of right radius, initial encounter for closed fracture Category: Medical (2) Fracture of right ulnar styloid: Code(s): S52.611A - Displaced fracture of right ulna styloid process, initial encounter for closed fracture Category: Medical Plan Assessment & Plan: ? 1. Right distal radius fracture, comminuted intra-articular minimally displaced From a fall, DOI: 03/20/25 ? 2. Right ulnar styloid fracture, nondisplaced From a fall, DOI: 03/20/25 These fractures are being managed non operatively in a cast. She appears to be doing very well. She was placed in a new short-arm cast today. I encouraged her to work on range of motion of the fingers and also some gentle prono-supination. We again talked about activity modification and lifting nothing heavier than a cell phone. Follow up in 2 weeks as scheduled with new radiographs out of plaster three views of the right wrist Anticipate discontinuing the cast and placement in a Velcro wrist splint and working on wrist range of motion exercises at that time. Orders: Orders XR wrist RT min 3V Today M25.531 - Pain in right wrist Coding Level of Care Code Global (65243) Diagnoses Fracture of right distal radius S52.501A Fracture of right ulnar styloid S52.611A
[2025-04-08 14:24] VITALS: BMI 26.4
--- OUTSIDE RECORDS SUMMARY | 2025-04-09 02:18 | XMS_ITS | Encounter Summary ---
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 on fi le Not on file Not on file documented as of this encounter Functional Status * Calculated C-SSRS Risk Score (Lifetime/Recent) Answer Date of Assessment Author No Risk Indicated 01/03/2024 1:00 PM EDT Ramy Lynn RN * Parker Suicide Severity Rating Scale (Screener/Recent Self-Report) Question [...] documented as of this encounter Care Teams Manager Document Control Relationship Specialty Start Date End Date Natalie Manning MD [address] [place] [address] [email or web address] PCP - General Family Medicine 04/14/[birth year]01/02 Rustam Key DO [address] [address] PCP - General Family Medicine 01/04/24 documented as of this encounter Additional Source Comments The information contained in this document represents components of the legal health record. It is not the complete legal health record.[facility]
--- OUTSIDE RECORDS SUMMARY | 2025-04-09 02:19 | XMS_ITS | Encounter Summary ---
Author Organization [facility] Address [address] [place] [address] Phone Care Team Providers Care Ripsaw Grader Name Role Phone Radha Carroll MD Primary Care Provider [phone] Natalie Manning MD Primary Care Provider [phone] Rustam Key DO Primary Care Provider [phone] Reason for Referral * Physical Therapy (Routine) - Closed Specialty Diagnoses / Procedures Referred By Larry ernandez Referred To Contact Physical Therapy Diagnoses Encounter for rehabilitation Natalie Manning MD Phone: tel: fax: mailto:[email or web address] [address] [place] [address] Phone: tel: Referral ID Status Reason Start Date Expiration Date Visits Re quested Visits Authorized [id number] Closed 03/31/2019 05/20/2020 53 53 Encounter Details Date Type Department Care Team (Latest Contact Info) Description 03/31/2019 Transcribe Orders [facility] Rehabilitation Services [address] [place] [address] Natalie Manning MD [address] [place], [place] [address] [email or web address] Encounter for rehabilitation (Primary Dx) Social History [...] Primary documented in this encounter Care Teams Ripsaw Grader Relationship Specialty Start Date End Date Radha Carroll MD [email or web address] PCP - General Family Medicine 09/03/17 04/13/19 Natalie Manning MD [address] [place] [address] [email or web address] PCP - General Family Medicine 04/[birth year]01/02 [place] [address] [address] PCP - General Family Medicine 01/04/24 documented as of this encounter Additional Source Comments The information contained in this document represents components of the legal health record. It is not the complete legal health record.[facility]
--- OUTSIDE RECORDS SUMMARY | 2025-04-09 02:19 | XMS_ITS | Encounter Summary ---
Author Organization [facility] Address [address] [place] [address] Phone Care Team Providers Care Survey Technologist Name Role Phone Radha Carroll MD Primary Care Provider [phone] Natalie Manning MD Primary Care Provider [phone] Rustam Key DO Primary Care Provider [phone] Reason for Referral * MRI/CAT Scan - Closed Specialty Diagnoses / Procedures Referred By Contac t Referred To Contact Procedures CT Abdomen Outside (No Interpretation) System, Provider Not In, [employer] [address] [place] [address] Referral ID Status Reason Start Date Expiration Date Visits Re quested Visits Authorized [id number] Closed 09/04/2017 09/04/2018 1 1 Encounter Details Date Type Department Care Team (Late st Contact Info) Description 09/04/2017 Ancillary Orders [facility],Outside Imaging [address] [place] [address] System, Provider Not In, [place] [address] Social History Tobacco Use Types Packs/Day Years [...] on filedocumented in this encounter Care Teams Survey Technologist Relationship Specialty Start Date End Date Radha Carroll MD [email or web address] PCP - General Family Medicine 09/03/17 04/13/19 Natalie Manning MD [address] [place] [address] [email or web address] PCP - General Family Medicine 04/14/1901/02 Rustam Key DO [address] [address] PCP - General Family Medicine 01/04/24 documented as of this encounter Additional Source Comments The information contained in this document represents components of the legal health record. It is not the complete legal health record.[facility]
--- OUTSIDE RECORDS SUMMARY | 2025-04-09 02:19 | XMS_ITS | Encounter Summary ---
Author Organization [facility] Address [facility] [address] [place] [address] Phone Care Team Providers Care Digital Learning Platforms Manager Name Role Phone Radha Carroll MD Primary Care Provider [phone] Natalie Manning MD Primary Care Provider [phone] Rustam Key DO Primary Care Provider [phone] Encounter Details Date Type Department Care Team (Late st Contact Info) Description 09/03/2017 Ancillary Orders Virtual Department [address] [place] [address] Radha Carroll MD [address] [facility] [address] [place] [address] [email or web address] Localized swelling, mass and lump, unspecified [...] unspecified documented in this encounter Care Teams Digital Learning Platforms Manager Relationship Specialty Start Date End Date Radha Carroll MD [email or web address] PCP - General Family Medicine 09/03/17 04/13/19 Natalie Manning MD [address] [place] [address] [email or web address] PCP - General Family Medicine [birth year]01/02 [place] [address] [address] PCP - General Family Medicine 01/04/24 documented as of this encounter Additional Source Comments The information contained in this document represents components of the legal health record. It is not the complete legal health record.[facility]
--- OUTSIDE RECORDS SUMMARY | 2025-04-09 02:19 | XMS_ITS | Encounter Summary ---
Author Organization [facility] Address [address] [place] [address] Phone Care Team Providers Care Repair Servicer Name Role Phone Radha Carroll MD Primary Care Provider [phone] Natalie Manning MD Primary Care Provider [phone] Rustam Key DO Primary Care Provider [phone] Encounter Details Date Type Department Care Team (Late st Contact Info) Description 09/03/2017 Procedure Pass [facility], [address] [address] Social History Tobacco Use Types Packs/Day Years [...] on filedocumented in this encounter Care Teams Repair Servicer Relationship Specialty Start Date End Date Radha Carroll MD [email or web address] PCP - General Family Medicine 09/03/17 04/13/19 Natalie Manning MD [address] [place] [address] [email or web address] PCP - General Family Medicine 04/14/1901/02 Rustam Key DO [address] [id number] PCP - General Family Medicine 01/04/24 documented as of this encounter Additional Source Comments The information contained in this document represents components of the legal health record. It is not the complete legal health record.[facility]
--- OUTSIDE RECORDS SUMMARY | 2025-04-09 02:19 | XMS_ITS | Encounter Summary ---
Author Organization [facility] Address [address] [place] [address] Phone Care Team Providers Care Box Stamper Name Role Phone Radha Carroll MD Primary Care Provider [phone] Natalie Manning MD Primary Care Provider [phone] Rustam Key DO Primary Care Provider [phone] Encounter Details Date Type Department Care Team (Late st Contact Info) Description 09/04/2017 Procedure Pass [facility],Outside Imaging [address] [place], [place] [id number] Social History Tobacco Use Types Packs/Day Years [...] on filedocumented in this encounter Care Teams Box Stamper Relationship Specialty Start Date End Date Radha Carroll MD [email or web address] PCP - General Family Medicine 09/03/17 04/13/19 Natalie Manning MD [address] [place], [place] [phone] [email or web address] PCP - General Family Medicine 04/14/1901/02 Rustam Key DO [facility] [address] [address] PCP - General Family Medicine 01/04/24 documented as of this encounter Additional Source Comments The information contained in this document represents components of the legal health record. It is not the complete legal health record.[facility]
== END 2025-04-08 15:32 | disposition home or self-care (01) ==
LOC: HO.HOS 14:03
PROVIDERS: Visit Provider Orthopaedic Surgery
DX: S52.501A Unspecified fracture of the lower end of right radius, initial encounter for closed fracture (principal); S52.611A Displaced fracture of right ulna styloid process, initial encounter for closed fracture
CPT/HCPCS: 99024

== ENCOUNTER → 2025-04-08 14:17 | Outpatient (BNV) | payer OTHER, SELFPAY | PROVIDERS: Visit Provider Radiology Diagnostic Radiology | DX: S52.501A Unspecified fracture of the lower end of right radius, initial encounter for closed fracture (principal); S52.611A Displaced fracture of right ulna styloid process, initial encounter for closed fracture | CPT/HCPCS: 73110 ==

== ENCOUNTER 2025-04-21 09:58 | Outpatient (REF) | payer OTHER, SELFPAY ==
--- NOTE | ~2025-04-21 | XR_ITS ---
EXAMINATION: XR WRIST, RIGHT CLINICAL INFORMATION: M25.531 - Pain in right wrist COMPARISON: April 08, 2025. TECHNIQUE: PA, lateral, and oblique views of the right wrist. FINDINGS: Fiberglas cast has been removed. Comminuted intra-articular fracture distal metaphysis/epiphysis of the radius without gross callus formation. Persistent 1 mm lucency through the fragments. Well-corticated calcification, styloid process of the ulna. Degenerative changes in the carpal bones without acute fracture or dislocation. No subcutaneous emphysema. No metallic or radiopaque foreign body. XR/XR wrist RT min 3V IMPRESSION: No gross healing, comminuted intra-articular fracture distal epiphysis/metaphysis right radius. Electronically signed by: Leroy Mejia MD 04/21/2025 02:26 PM [facility]ERR[facility]
--- OUTSIDE RECORDS SUMMARY | 2025-04-23 11:39 | XMS_ITS | Encounter Summary ---
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 fi le Not on file Not on file documented as of this encounter Functional Status * Calculated C-SSRS Risk Score (Lifetime/Recent) Answer Date of Assessment Author No Risk Indicated 01/03/2024 1:00 PM EDT Ramy Lynn RN * Cross Suicide Severity Rating Scale (Screener/Recent Self-Report) Question [...] documented as of this encounter Care Teams Truck Greaser Relationship Specialty Start Date End Date Natalie Manning MD [address] [place] [address] [email or web address] PCP - General Family Medicine [birth year]/14/1901/02 Rustam Key DO [address] [address] PCP - General Family Medicine 01/04/24 documented as of this encounter Additional Source Comments The information contained in this document represents components of the legal health record. It is not the complete legal health record.[facility]
--- OUTSIDE RECORDS SUMMARY | 2025-04-23 11:39 | XMS_ITS | Encounter Summary ---
Author Organization [facility] Address [address] [place] [address] Phone Care Team Providers Care Associate Brand Manager Name Role Phone Radha Carroll MD Primary Care Provider [phone] Natalie Manning MD Primary Care Provider [phone] Rustam Key DO Primary Care Provider [phone] Encounter Details Date Type Department Care Team (Late st Contact Info) Description 09/04/2017 Procedure Pass [facility],Outside Imaging [address] [place], [place] [phone] Social History Tobacco Use Types Packs/Day Years [...] on filedocumented in this encounter Care Teams Associate Brand Manager Relationship Specialty Start Date End Date Radha Carroll MD [email or web address] PCP - General Family Medicine 09/03/17 04/13/19 Natalie Manning MD [address] [place], [place] [phone] [email or web address] PCP - General Family Medicine 04/14/1901/02 [facility] [address] [address] PCP - General Family Medicine 01/04/24 documented as of this encounter Additional Source Comments The information contained in this document represents components of the legal health record. It is not the complete legal health record.[facility]
--- OUTSIDE RECORDS SUMMARY | 2025-04-23 11:39 | XMS_ITS | Encounter Summary ---
Author Organization [facility] Address [address] [place] [address] Phone Care Team Providers Care Optical Instrument Repairer Name Role Phone Radha Carroll MD Primary Care Provider [phone] Natalie Manning MD Primary Care Provider [phone] Rustam Key DO Primary Care Provider [phone] Reason for Referral * Physical Therapy (Routine) - Closed Specialty Diagnoses / Procedures Referred By Larry ernandez Referred To Contact Physical Therapy Diagnoses Encounter for rehabilitation Natalie Manning MD Phone: tel: fax: mailto:[email or web address] [address] [place] [address] Phone: tel: Referral ID Status Reason Start Date Expiration Date Visits Re quested Visits Authorized [id number] Closed 03/31/2019 05/20/2020 53 53 Encounter Details Date Type Department Care Team (Latest Contact Info) Description 03/31/2019 Transcribe Orders [facility] Rehabilitation Services [address] [place] [address] Natalie Manning MD [address] [place], [place] [id number] [email or web address] Encounter for rehabilitation (Primary Dx) Social History [...] Diagnoses Orde r Schedule Ambulatory referral to [facility] Physical Therapy Outpatient Referral Routine Encounter for rehabilitation Ordered: 03/31/2019 documented as of this encounter Visit Diagnoses Diagnosis Encounter for rehabilitation- Primary documented in this encounter Care Teams Optical Instrument Repairer Relationship Specialty Start Date End Date Radha Carroll MD [email or web address] PCP - General Family Medicine 09/03/17 04/13/19 Natalie Manning MD [address] [place] [address] [email or web address] PCP - General Family Medicine [birth year]/14/[birth year]01/02 [place] [address] [address] PCP - General Family Medicine 01/04/24 documented as of this encounter Additional Source Comments The information contained in this document represents components of the legal health record. It is not the complete legal health record.[facility]
--- OUTSIDE RECORDS SUMMARY | 2025-04-23 11:39 | XMS_ITS | Encounter Summary ---
Author Organization [facility] Address Formerly [facility] [facility] [address] [place] [address] Phone Care Team Providers Care Geophysical Prospecting Surveyor Name Role Phone Radha Carroll MD Primary Care Provider [phone] Natalie Manning MD Primary Care Provider [phone] Rustam Key DO Primary Care Provider [phone] Encounter Details Date Type Department Care Team (Late st Contact Info) Description 09/03/2017 Ancillary Orders Virtual Department [address] [place] [address] Radha Carroll MD 38 [facility] [address] [place] [address] [email or web address] Localized swelling, mass and lump, [...] unspecified documented in this encounter Care Teams Geophysical Prospecting Surveyor Relationship Specialty Start Date End Date Radha Carroll MD [email or web address] PCP - General Family Medicine 09/03/17 04/13/19 Natalie Manning MD [address] [place] [address] [email or web address] PCP - General Family Medicine 04/14/1899/02 [place] [address] [address] PCP - General Family Medicine 01/04/24 documented as of this encounter Additional Source Comments The information contained in this document represents components of the legal health record. It is not the complete legal health record.[facility]
--- OUTSIDE RECORDS SUMMARY | 2025-04-23 11:39 | XMS_ITS | Encounter Summary ---
Author Organization [facility] Address [address] [place] [address] Phone Care Team Providers Care Porter Baggage Name Role Phone Radha Carroll MD Primary Care Provider [phone] Natalie Manning MD Primary Care Provider [phone] Rustam Key DO Primary Care Provider [phone] Reason for Referral * MRI/CAT Scan - Closed Specialty Diagnoses / Procedures Referred By Contac t Referred To Contact Procedures CT Abdomen Outside (No Interpretation) System, Provider Not In, [facility] [employer] [address] [place] [address] Referral ID Status Reason Start Date Expiration Date Visits Re quested Visits Authorized [id number] Closed 09/04/2017 09/04/2018 1 1 Encounter Details Date Type Department Care Team (Late st Contact Info) Description 09/04/2017 Ancillary Orders [facility],Outside Imaging [address] [place] [address] System, Provider Not In, [place] [address] Social History Tobacco Use Types Packs/Day Years [...] on filedocumented in this encounter Care Teams Porter Baggage Relationship Specialty Start Date End Date Radha Carroll MD [email or web address] PCP - General Family Medicine 09/03/17 04/13/19 Natalie Manning MD [address] [place] [address] [email or web address] PCP - General Family Medicine 04/14/[birth year]01[birth year]02 Rustam Key DO [address] [address] PCP - General Family Medicine 01/04/24 documented as of this encounter Additional Source Comments The information contained in this document represents components of the legal health record. It is not the complete legal health record.[facility]
--- OUTSIDE RECORDS SUMMARY | 2025-04-23 11:39 | XMS_ITS | Encounter Summary ---
Author Organization [facility] Address [address] [place] [address] Phone Care Team Providers Care Proposal Lead Writer Name Role Phone Radha Carroll MD Primary Care Provider [phone] Natalie Manning MD Primary Care Provider [phone] Rustam Key DO Primary Care Provider [phone] Encounter Details Date Type Department Care Team (Late st Contact Info) Description 09/03/2017 Procedure Pass [facility], [address] [address] Social History Tobacco Use Types Packs/Day Years [...] on filedocumented in this encounter Care Teams Proposal Lead Writer Relationship Specialty Start Date End Date Radha Carroll MD [email or web address] PCP - General Family Medicine 09/03/17 04/13/19 Natalie Manning MD [address] [place] [address] [email or web address] PCP - General Family Medicine [birth year]01[birth year]02 Rustam Key DO [address] [id number] PCP - General Family Medicine 01/04/24 documented as of this encounter Additional Source Comments The information contained in this document represents components of the legal health record. It is not the complete legal health record.[facility]
--- OUTSIDE RECORDS SUMMARY | 2025-04-23 11:39 | XMS_ITS | Clinical Summary ---
Author Organization [facility] Address [address] [place] [address] Phone Care Team Providers Care Poker Dealer Name Role Phone Rustam Key Primary Care Provider [phone] Allergies No known active allergies Medications montelukast [...] chili without beans, scrambled eggs, cottage cheese, Ugandan yogurt, cauliflower rice, or you may place any food in the blender conveyor operator a food service hotel runner to create pureed food. 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 Not on [...] 2025 02/29/2024, 02/28/2022, 02/28/2022, Additional history exists BLOOD PRESSURE 08/17/2025 02/17/2025 TSH LEVEL 04/06/2026 04/06/2025, 01/0 12/2024, 10/27/2023, Additional history exists Adult Td,Tdap Booster 06/13/2026 06/13/2016, 006 COLONOSCOPY 01/05/2028 09/19/2023 COLORECTAL CANCER SCREENING 01/05/2028 SCREENING FOR DIABETES 04/06/2028 04/06/2025, 2024 LIPID PANEL 04/06/2030 04/06/2025, 0 12/2024, 02/11/2024, Additional history exists SMOKING STATUS SCREENING (Once After 26 Yrs) [...] this topic Medical Devices Implanted Type Area Amusement Equipment Operator Device Identifier Shelf Expiration Date Model / Serial / Lot Nodata NODATA Mandible Description:Dental implants Procedures Procedure Name Priority Date/Time Associated Diagnosis Comments VITAMIN B12 Routine 04/06/2025 4:00 PM EST Intestinal malabsorption following gastrectomy THYROID STIMULATING HORMONE (TSH) Routine 04/06/2025 4:00 PM EST Acquired hypothyroidism PARATHYROID HORMONE (PTH) Routine 04/06/2025 4:00 PM EST Intestinal malabsorption following gastrectomy LIPID PANEL Routine 04/06/2025 4:00 PM EST Intestinal malabsorption following gastrectomy IRON AND IRON BINDING CAPACITY Routine 04/06/2025 4:00 PM EST Intestinal malabsorption following gastrectomy INSULIN LEVEL Routine 04/06/2025 4:00 PM EST Intestinal malabsorption following gastrectomy HEMOGLOBIN A1C Routine 04/06/2025 4:00 PM EST Intestinal malabsorption following gastrectomy C-REACTIVE PROTEIN (CRP) Routine 04/06/2025 4:00 PM EST Intestinal malabsorption following gastrectomy COMPREHENSIVE METABOLIC PANEL (CMP) Routine 04/06/2025 4:00 PM EST Intestinal malabsorption following gastrectomy CBC Routine 04/06/2025 4:00 PM EST Intestinal malabsorption following gastrectomy 25-OH VITAMIN D Routine 04/06/2025 4:00 PM EST Intestinal malabsorption following gastrectomy HM COLONOSCOPY FOR RESULT ENTRY ONLY Routine 09/19/2023 from Last 3 Months or Most Recently Relevant to Health Maintenance Results * Comprehensive Metabolic Panel (CMP) (04/06/2025 4:00 PM EST) Sodium 140 136 - 145 mmol/L 04/07/2025 12:38 PM [facility] Potassium 4.1 3.4 - 5.1 mmol/L 04/07/2025 12:38 PM [facility] Chloride 103 98 - 107 mmol/L 04/07/2025 12:38 PM [facility] CO2 24 20 - 31 mmol/L 04/07/2025 12:38 PM [facility] Anion Gap 13 3 - 17 mmol/L 04/07/2025 12:38 PM [facility] BUN 19 6 - 23 mg/dL 04/07/2025 12:38 PM [facility] Creatinine 0.50 0.50 - 1.00 mg/dL 04/07/2025 12:38 PM [facility] eGFR 106 >59 mL/min/1.7 3m2 04/07/2025 12:38 PM [facility] Comment:Estimated glomerular filtration rate calculated using the CKD-EPI refit equation. Glucose 72 70 - 99 mg/dL 04/07/2025 12:38 PM [facility] Calcium 9.4 8.5 - 10.5 mg/dL 04/07/2025 12:38 PM [facility] AST 30 <33 U/L 04/07/2025 12:38 PM [facility] ALT 26 <34 U/L 04/07/2025 12:38 PM [facility] Alkaline Phosphatase 88 40 - 130 U/L 04/07/2025 12:38 PM [facility] Bilirubin, Total 0.3 0.0 - 1.2 mg/dL 04/07/2025 12:38 PM [facility] Total Protein 7.5 6.4 - 8.3 g/dL 04/07/2025 12:38 PM [facility] Albumin 4.6 3.5 - 5.2 g/dL 04/07/2025 12:38 PM [facility] Globulin 2.9 1.9 - 4.1 g/dL 04/07/2025 12:38 PM [facility] Blood 04/06/2025 4:00 PM EST 04/06/2025 4:00 PM EST us Sepideh Barrientos MD LAB BLOOD BKR ORDERABLES F inal Result [facility] [address] [place], [place] [id number] * Iron and Total Iron Binding Capacity (Iron/TIBC) (04/06/2025 4:00 PM EST) Iron 70 28 - 170 ug/dL 04/07/2025 12:38 PM [facility] Total Iron-Binding Capacity (TIBC) 355 220 - 460 ug/dL 04/07/2025 12:38 PM [facility] Transferrin Saturation 20 14 - 50 % 04/07/2025 12:38 PM [facility] Blood 04/06/2025 4:00 PM EST 04/06/2025 4:00 PM EST us Sepideh Barrientos MD LAB BLOOD BKR ORDERABLES F inal Result Performing Organization Address City/[facility]/ZIP Co de Phone Number [address] [address] * 25-OH Vitamin D (04/06/2025 4:00 PM EST) 25-OH Vitamin D, Total 35 20 - 50 ng/mL 04/07/2025 12:52 PM EST [facility] Comment: Severe deficiency: <10 ng/mL Mild to moderate deficiency: 10-19 ng/mL Optimum levels: 20-50 ng/mL Increased risk of hypercalciuria: 51-80 ng/mL Possible toxicity: >80 ng/mL Blood 04/06/2025 4:00 PM EST 04/06/2025 4:00 PM EST us Sepideh Barrientos MD LAB BLOOD BKR ORDERABLES F inal Result Performing Organization Address [facility]/ZIP Co de Phone Number [address] [address] * Insulin Level (04/06/2025 4:00 PM EST) Insulin 4.1 2.6 - 24.9 uIU/mL 04/07/2025 10:33 PM EST [facility] Blood 04/06/2025 4:00 PM EST 04/06/2025 4:00 PM EST us Sepideh Barrientos MD LAB BLOOD BKR ORDERABLES F inal Result [address] [address] * (ABNORMAL) CBC (04/06/2025 4:00 PM EST) WBC 8.21 4.00 - 11.00 K/uL 04/07/2025 10:40 AM EST [facility] RBC 4.71 4.00 - 5.20 M/uL 04/07/2025 10:40 AM [facility] Hemoglobin 13.5 12.0 - 16.0 g/dL 04/07/2025 10:40 AM [facility] Hematocrit 43.0 36.0 - 46.0 % 04/07/2025 10:40 AM [facility] MCV 91.3 80.0 - 100.0 fL 04/07/2025 10:40 AM [facility] MCH 28.7 27.0 - 31.0 pg 04/07/2025 10:40 AM [facility] MCHC 31.4(L) 32.0 - 36.0 g/dL 04/07/2025 10:40 AM [facility] PLT 332 150 - 450 K/uL 04/07/2025 10:40 AM [facility] MPV 9.2 8.4 - 12.0 fL 04/07/2025 10:40 AM [facility] RDW-CV 13.5 11.5 - 14.5 % 04/07/2025 10:40 AM [facility] Absolute NRBC 0.00 <=0.00 K cells/uL 04/07/2025 10:40 AM [facility] NRBC 0.0 <=0.0 /100 WBCs 04/07/2025 10:40 AM [facility] Blood 04/06/2025 4:00 PM EST 04/06/2025 4:00 PM EST us Sepideh Barrientos MD LAB BLOOD BKR ORDERABLES F inal Result [address] [address] * C-Reactive Protein (CRP) (04/06/2025 4:00 PM EST) C Reactive Protein <3.0 <10.0 mg/L 04/07/2025 12:38 PM [facility] Comment:NOTE: This reference range is for the evaluation of inflammation. Order CRP, High Sensitivity for cardiac risk status evaluation. Blood 04/06/2025 4:00 PM EST 04/06/2025 4:00 PM EST us Sepideh Barrientos MD LAB BLOOD BKR ORDERABLES F inal Result Performing Organization Address [facility]/ZIP Co de Phone Number [address] [address] * Thyroid Stimulating Hormone (TSH) (04/06/2025 4:00 PM EST) TSH 0.51 0.40 - 5.00 uIU/mL 04/07/2025 12:38 PM EST [facility] Blood 04/06/2025 4:00 PM EST 04/06/2025 4:00 PM EST us Sepideh Barrientos MD LAB BLOOD BKR ORDERABLES F inal Result Performing Organization Address [facility] Co de Phone Number [address] [address] * Parathyroid Hormone (PTH) (04/06/2025 4:00 PM EST) Parathyroid Hormone (PTH) 37 15 - 65 pg/mL 04/07/2025 12:52 PM EST [facility] Blood 04/06/2025 4:00 PM EST 04/06/2025 4:00 PM EST us Sepideh Barrientos MD LAB BLOOD BKR ORDERABLES F inal Result Performing Organization Address [facility] Co de Phone Number [address] [address] * (ABNORMAL) Hemoglobin A1c (04/06/2025 4:00 PM EST) Hemoglobin A1c 5.8(H) 4.3 - 5.6 % 04/07/2025 12:07 PM [facility] Calculated Mean Blood Glucose 120 mg/dL 04/07/2025 12:07 PM [facility] Comment:There is no establis hed normal range for the Estimated Average Glucose (EAG). However, a HbA1c of 5.6% (upper limit of normal) represents an EAG of 114 mg/dL. The diagnostic HbA1c level for diabetes is greater than or equal to 6.5%, which represents an EAG greater than or equal to 140 mg/dL. Blood 04/06/2025 4:00 PM EST 04/06/2025 4:00 PM EST Sepideh Barrientos MD LAB BLOOD BKR ORDERABLES F inal Result Performing Organization Address City/[facility]/ZIP Co de Phone Number [address] [address] * Vitamin B12 (04/06/2025 4:00 PM EST) Vitamin B12 617 232 - 1,245 pg/mL 04/07/2025 1:11 PM [facility] Blood 04/06/2025 4:00 PM EST 04/06/2025 4:00 PM EST us Sepideh Barrientos MD LAB BLOOD BKR ORDERABLES F inal Result Performing Organization Address [facility] Co de Phone Number [address] [address] * Lipid Panel (04/06/2025 4:00 PM EST) Cholesterol 188 <200 mg/dL 04/07/2025 12:38 PM [facility] HDL 77 >=40 mg/dL 04/07/2025 12:38 PM [facility] Calculated LDL 97 <130 mg/dL 04/07/2025 12:38 PM [facility] Comment:LDL is calculated us ing the Panchal-NIH equation (CAROL Cardiol. 2019September 18;5(5):540-548). Non-HDL Cholesterol 111 mg/dL 04/07/2025 12:38 PM [facility] Comment:Guidelines suggest a non-HDL cholesterol goal 30 mg/dL higher than the patient-specific LDL cholesterol goal. Cardiac Risk Ratio 2.4 0.0 - 5.0 2024 12:38 PM EST [facility] Triglycerides 77 <=150 mg/dL 04/07/2025 12:38 PM EST [facility] Blood 04/06/2025 4:00 PM EST 04/06/2025 4:00 PM EST us Sepideh Barrientos MD LAB BLOOD BKR ORDERABLES F inal Result [address] [address] * COLONOSCOPY FOR RESULT ENTRY ONLY (09/19/2023) HM Colonoscopy External us Historical Provider HEALTH MAINTENANCE Final Result from Last 3 Months or Most Recently Relevant to Health Maintenance Insurance [facility] [place] [id number] [facility] [employer] FAMILY EMPLOYEES FAMILY EMPLOYEES FAMILY EMPLOYEES FAMILY EMPLOYEES FAMILY EMPLOYEES FAMILY EMPLOYEES [place] [address] EMPLOYEES FAMILY Advance Directives For more information, please contact: [phone] (9AM - 5PM [facility], Sunday-Sunday) * Full Code (Latest Code Status on File) Date Activated Date Inactivated Comments 01/03/2024 12:47 PM Question Answer Comments Code Status Confirmed With: Patient * Full Code Date Activated Date Inactivated Comments 01/03/2024 7:16 AM 01/03/2024 12:47 PM Question Answer Comments Code Status Confirmed With: Patient Care Teams Poker Dealer Relationship Specialty Start Date End Date [facility] [address] [address] PCP - General Family Medicine 01/04/24 Additional Source Comments The information contained in this document represents components of the legal health record. It is not the complete legal health record.[facility]
== END 2025-04-21 09:59 | disposition home or self-care (01) ==
LOC: HO.HOSX 09:58
PROVIDERS: Visit Provider Orthopaedic Surgery
DX: S52.501D Unspecified fracture of the lower end of right radius, subsequent encounter for closed fracture with routine healing (principal); S52.611D Displaced fracture of right ulna styloid process, subsequent encounter for closed fracture with routine healing; X58.XXXD Exposure to other specified factors, subsequent encounter
CPT/HCPCS: 73110

== ENCOUNTER 2025-04-21 14:13 | Outpatient (AMB) | payer OTHER, SELFPAY ==
[2025-04-21 14:23] VITALS: BMI 26.4
--- NOTE | 2025-04-21 14:23 | MHC.OFFVIS ---
Vital Signs 04/21/25 14:23 Height 5 ft Weight 135 lb BMI 26.4 Intake Visit Reasons: OV- OV-RT Dis. Rad.& ulnar fx 03/20/25 Intake Note: Navya is a 64 year old female who presents today for a follow up visit for her right Dis. Rad.& ulnar fx 03/20/25. Cast removed in office. States she feels stiffness in wrist and denies numbmness or tingling in fingers. Allergies No Known Allergies Allergy (Verified 04/21/25 14:25) HPI HPI OV- OV-RT Dis. Rad.& ulnar fx 03/20/25: Details: Navya is a 64-year-old hioyi-uqre-vbbuetjl woman who sustained right distal radius and ulnar styloid fractures in a fall, DOI: 03/20/2025. She complains of some stiffness in her wrist. She denies any kind of fall or injury since her last visit. She denies having trouble with numbness and tingling. She is legally blind. 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 [facility] Medical History (Updated 04/08/25 @ 14:27 by DIANE Chowdary) Acute hemorrhoid Surgical History H/O bariatric surgery Social History Current occupational status: employed Current occupation: rt hand / teacher Review of Systems Const All systems reviewed & are unremarkable except as noted in HPI and below Physical Exam Vital Signs: BMI result Body Mass Index 26.4 Const General: no acute distress and alert Orientation/consciousness: patient oriented x3 Neuro General: patient oriented x3 Extrem Other: Evaluation of Right Upper Extremity: The patient is alert, oriented, and in no acute distress Neuro: Median, Ulnar, Radial nerves motor and sensory intact and sensation is normal to the tips of all digits, with some decreased sensation to the tip of the thumb today in clinic Vascular: Cap refill brisk ROM: With encouragement she could make a fist and extend all her digits She was able to bring her hand from ~65 degrees of pronation to ~50 degrees of supination without any problems. ~15 degrees flexion ~20 degrees extension Radiographs: 3 views of the right wrist were taken and viewed by me today in clinic. They show a transverse distal radius fracture with intra-articular extension, with satisfactory fracture alignment and some evidence of interval bony healing. There is also an ulnar styloid fracture with nondisplaced extension to the base of the styloid. Psych Appearance: grossly normal Affect: normal affect Attitude: cooperative Assessment & Plan Assessment & Plan (1) Fracture of right distal radius: Code(s): S52.501A - Unspecified fracture of the lower end of right radius, initial encounter for closed fracture Category: Medical (2) Fracture of right ulnar styloid: Code(s): S52.611A - Displaced fracture of right ulna styloid process, initial encounter for closed fracture Category: Medical Plan Assessment & Plan: ? 1. Right distal radius fracture, comminuted intra-articular minimally displaced From a fall, DOI: 03/20/25 ? 2. Right ulnar styloid fracture, nondisplaced From a fall, DOI: 03/20/25 These fractures were managed non operatively in a cast. She appears to be doing very well. She was fitted for a velcro wrist splint, to be worn for the next 4 weeks, like a cast except for showering and to work on range of motion exercises. She can remove this when at home in 2 weeks. She will continue to work on ROM exercises at home, out of her splint I discussed activity modifications, she is to use her hand for lightweight activities, no greater than 5lbs for the next 4 weeks. They should also avoid any heavy impact activities, falls, or sports activities for the next 4 weeks She will follow up in 4 weeks for a ROM check. No X-rays We may order OT at that time as needed. Scribed for Salud Horan MD by Juan Carlos Haider, medical insurance coder, on 04/21/25 at 2:45 PM, EST. Orders: Orders XR wrist RT min 3V Today M25.531 - Pain in right wrist Coding Level of Care Code Global (37008) Diagnoses Fracture of right distal radius S52.501A Fracture of right ulnar styloid S52.611A
== END 2025-04-21 15:05 | disposition home or self-care (01) ==
LOC: HO.HOS 14:14
PROVIDERS: Visit Provider Orthopaedic Surgery
DX: S52.501A Unspecified fracture of the lower end of right radius, initial encounter for closed fracture (principal); S52.611A Displaced fracture of right ulna styloid process, initial encounter for closed fracture
CPT/HCPCS: 99024

== ENCOUNTER → 2025-04-21 14:15 | Outpatient (BNV) | payer OTHER, SELFPAY | PROVIDERS: Visit Provider Radiology Diagnostic Radiology | DX: S52.501A Unspecified fracture of the lower end of right radius, initial encounter for closed fracture (principal) | CPT/HCPCS: 73110 ==

== ENCOUNTER 2025-05-19 15:19 | Outpatient (AMB) | payer OTHER, SELFPAY ==
[2025-05-19 15:25] VITALS: BMI 26.4
--- NOTE | 2025-05-19 15:25 | MHC.OFFVIS ---
Vital Signs 05/19/25 15:25 Height 5 ft Weight 135 lb BMI 26.4 Intake Visit Reasons: OV-ROM check/RT Dis. Rad.& ulnar fx 03/20/25 Intake Note: Navya 64 year old female who presents today for a follow up visit for her right Dis. Rad.& ulnar fx 03/20/25. At her last visit patient was fitted for a velcro wrist splint, she will continue to work on ROM exercises at home, she is to use her hand for lightweight activities, no greater than 5lbs for the next 4 weeks. They should also avoid any heavy impact activities, falls, or sports activities for the next 4 weeks. Today patient is here for a ROM check. States she continues to have pain daily, and is [id number] on her wrist flextion. Allergies No Known Allergies Allergy (Verified 05/19/25 15:28) HPI HPI OV-ROM check/RT Dis. Rad.& ulnar fx 03/20/25: Details: Navya is a 64-year-old kgdaj-swxj-fgpsorbt woman who sustained right distal radius and ulnar styloid fractures in a fall, DOI: 03/20/2025. She is here for a ROM check She complains of stiffness & pain in her wrist. She says she has been trying to work on ROM exercises at home, particularly wrist flexion She denies any kind of fall or injury since her last visit. She denies having trouble with numbness and tingling. She is legally blind. 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 [facility] Medical History (Updated 04/08/25 @ 14:27 by DIANE Chowdary) Acute hemorrhoid Surgical History H/O bariatric surgery Social History Current occupational status: employed Current occupation: rt hand / teacher Review of Systems Const All systems reviewed & are unremarkable except as noted in HPI and below Physical Exam Vital Signs: BMI result Body Mass Index 26.4 Const General: no acute distress and alert Orientation/consciousness: patient oriented x3 Neuro General: patient oriented x3 Extrem Other: Evaluation of Right Upper Extremity: The patient is alert, oriented, and in no acute distress Neuro: Median, Ulnar, Radial nerves motor and sensory intact and sensation is normal to the tips of all digits, with some decreased sensation to the tip of the thumb today in clinic Vascular: Cap refill brisk ROM: With encouragement she could make a fist and extend all her digits Full & symmtrical pronosupination ~40 degrees flexion ~60 degrees extension Mild tenderness around the mid-palmar crease, in line with the ring finger. She may have a small Dupuytrens nodule. No evidence of cord or contractures Psych Appearance: grossly normal Affect: normal affect Attitude: cooperative Assessment & Plan Assessment & Plan (1) Fracture of right distal radius: Code(s): S52.501A - Unspecified fracture of the lower end of right radius, initial encounter for closed fracture Category: Medical (2) Fracture of right ulnar styloid: Code(s): S52.611A - Displaced fracture of right ulna styloid process, initial encounter for closed fracture Category: Medical Plan Assessment & Plan: ? 1. Right distal radius fracture, comminuted intra-articular minimally displaced From a fall, DOI: 03/20/25 ? 2. Right ulnar styloid fracture, nondisplaced From a fall, DOI: 03/20/25 These fractures were managed non operatively in a cast. She appears to be doing very well. She will discontinue her wrist splint at this time She will continue to work on ROM exercises at home I ordered OT hand therapy to work on ROM, strengthening, and normalizing function of her wrist I discussed activity modifications, she is to use her hand for lightweight activities, and slowly increase as tolerated over the next few weeks. She works as a teacher and says she is back to work currently She will follow up in 6-8 weeks for a ROM check. No X-rays. She may cancel this if she is doing well Scribed for Salud Horan MD by Juan Carlos Haider emergency medical services coordinator, on 05/19/25 at 3:30 PM, EST. Orders: Orders OT Evaluation and Treatment Today S52.501A - Unspecified fracture of the lower end of right radius, initial encounter for closed fracture, S52.611A - Displaced fracture of right ulna styloid process, initial encounter for closed fracture Coding Level of Care Code Global (04443) Diagnoses Fracture of right distal radius S52.501A Fracture of right ulnar styloid S52.611A
--- OUTSIDE RECORDS SUMMARY | 2025-05-19 18:44 | XMS_ITS | Encounter Summary ---
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 [address] [place] [address] Liane Trejo LDN [address] [place] [address] [email or web address] documented as of this encounter Visit Diagnoses Not on filedocumented in this encounter Additional Health Concerns Assessment Noted Time PHQ-2 Depression Total Score: 0 10/24/19 24 3:22 PM EDT documented as of this encounter Care Teams Snowsport Instructor Relationship Specialty Start Date End Date Natalie Manning MD [address] [place] [address] [email or web address] PCP - General Family Medicine 04/14/1901/02 Rustam Key DO [address] [address] PCP - General Family Medicine 01/04/24 documented as of this encounter Additional Source Comments The information contained in this document represents components of the legal health record. It is not the complete legal health record.[facility]
--- OUTSIDE RECORDS SUMMARY | 2025-05-19 18:44 | XMS_ITS | Clinical Summary ---
Author Organization [facility] Address [address] [place] [address] Phone Care Team Providers Care Rn Clinical Trials Name Role Phone Rustam Key Primary Care Provider [phone] Allergies No known active allergies Medications montelukast [...] chili without beans, scrambled eggs, cottage cheese, Surinamese yogurt, cauliflower rice, or you may place any food in the lead blender a food cashier to create pureed food. 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 [place] [address] [email or web address] Health Maintenance Due Date Last Done Comments [...] PRESSURE 08/17/2025 02/17/2025 TSH LEVEL 04/06/2026 04/06/2025, 0 12/2024, 10/27/2023, Additional history exists Adult Td,Tdap Booster 06/13/2026 06/13/2016, 006 COLONOSCOPY 01/05/2028 09/19/2023 COLORECTAL CANCER SCREENING 01/05/2028 SCREENING FOR DIABETES 04/06/2028 04/06/2025, 2024 LIPID PANEL 04/06/2030 04/06/2025, 010 12/2024, 02/11/2024, Additional history exists SMOKING STATUS [...] this topic Medical Devices Implanted Type Area Concrete Form Setter And Finisher Device Identifier Shelf Expiration Date Model / [...] Metabolic Panel (CMP) (04/06/2025 4:00 PM EST) [facility] [address] Sodium 140 136 - 145 mmol/L 04/07/2025 12:38 PM EST [facility] Potassium 4.1 3.4 - 5.1 mmol/L 04/07/2025 12:38 PM EST [facility] Chloride 103 98 - 107 mmol/L 04/07/2025 12:38 PM EST [facility] CO2 24 20 - 31 mmol/L 04/07/2025 12:38 PM EST [facility] Anion Gap 13 3 - 17 mmol/L 04/07/2025 12:38 PM [facility] BUN 19 6 - 23 mg/dL 04/07/2025 12:38 PM [facility] Creatinine 0.50 0.50 - 1.00 mg/dL 04/07/2025 12:38 PM [facility] eGFR 106 >59 mL/min/1.7 3m2 04/07/2025 12:38 PM [facility] Comment:Estimated glomerular filtration rate calculated using the CKD-EPI refit equation. Glucose 72 70 - 99 mg/dL 04/07/2025 12:38 PM [facility] Calcium 9.4 8.5 - 10.5 mg/dL 04/07/2025 12:38 PM [facility] AST 30 <33 U/L 04/07/2025 12:38 PM [facility] ALT 26 <34 U/L 04/07/2025 12:38 PM [facility] Alkaline Phosphatase 88 40 - 130 U/L 04/07/2025 12:38 PM [facility] Bilirubin, Total 0.3 0.0 - 1.2 mg/dL 04/07/2025 12:38 PM [facility] Total Protein 7.5 6.4 - 8.3 g/dL 04/07/2025 12:38 PM [facility] Albumin 4.6 3.5 - 5.2 g/dL 04/07/2025 12:38 PM [facility] Globulin 2.9 1.9 - 4.1 g/dL 04/07/2025 12:38 PM [facility] Blood 04/06/2025 4:00 PM EST 04/06/2025 4:00 PM EST us Sepideh Barrientos MD LAB BLOOD BKR ORDERABLES F inal Result [facility] [address] [place] [address] * Iron and Total Iron Binding Capacity (Iron/TIBC) (04/06/2025 4:00 PM EST) Iron 70 28 - 170 ug/dL 04/07/2025 12:38 PM [facility] Total Iron-Binding Capacity (TIBC) 355 220 - 460 ug/dL 04/07/2025 12:38 PM [facility] Transferrin Saturation 20 14 - 50 % 04/07/2025 12:38 PM [facility] Blood 04/06/2025 4:00 PM EST 04/06/2025 4:00 PM EST us Sepideh Barrientos MD LAB BLOOD BKR ORDERABLES F inal Result [address] [address] * 25-OH Vitamin D (04/06/2025 4:00 PM EST) 25-OH Vitamin D, Total 35 20 - 50 ng/mL 04/07/2025 12:52 PM [facility] Comment: Severe deficiency: <10 ng/mL Mild to moderate deficiency: 10-19 ng/mL Optimum levels: 20-50 ng/mL Increased risk of hypercalciuria: 51-80 ng/mL Possible toxicity: >80 ng/mL Blood 04/06/2025 4:00 PM EST 04/06/2025 4:00 PM EST us Sepideh Barrientos MD LAB BLOOD BKR ORDERABLES F inal Result Performing Organization Address City/[facility]/ZIP Co de Phone Number [address] [address] * Insulin Level (04/06/2025 4:00 PM EST) Insulin 4.1 2.6 - 24.9 uIU/mL 04/07/2025 10:33 PM EST [facility] Blood 04/06/2025 4:00 PM EST 04/06/2025 4:00 PM EST us Sepideh Barrientos MD LAB BLOOD BKR ORDERABLES F inal Result [address] [address] * (ABNORMAL) CBC (04/06/2025 4:00 PM EST) WBC 8.21 4.00 - 11.00 K/uL 04/07/2025 10:40 AM [facility] RBC 4.71 4.00 - 5.20 M/uL 04/07/2025 10:40 AM [facility] Hemoglobin 13.5 12.0 - 16.0 g/dL 04/07/2025 10:40 AM [facility] Hematocrit 43.0 36.0 - 46.0 % 04/07/2025 10:40 AM [facility] MCV 91.3 80.0 - 100.0 fL 04/07/2025 10:40 AM [facility] MCH 28.7 27.0 - 31.0 pg 04/07/2025 10:40 AM [facility] MCHC 31.4(L) 32.0 - 36.0 g/dL 04/07/2025 10:40 AM [facility] PLT 332 150 - 450 K/uL 04/07/2025 10:40 AM [facility] MPV 9.2 8.4 - 12.0 fL 04/07/2025 10:40 AM [facility] RDW-CV 13.5 11.5 - 14.5 % 04/07/2025 10:40 AM [facility] Absolute NRBC 0.00 <=0.00 K cells/uL 04/07/2025 10:40 AM [facility] NRBC 0.0 <=0.0 /100 WBCs 04/07/2025 10:40 AM [facility] Blood 04/06/2025 4:00 PM EST 04/06/2025 4:00 PM EST us Sepideh Barrientos MD LAB BLOOD BKR ORDERABLES F inal Result [facility] [address] [place] [address] * C-Reactive Protein (CRP) (04/06/2025 4:00 PM EST) C Reactive Protein <3.0 <10.0 mg/L 04/07/2025 12:38 PM EST [facility] Comment:NOTE: This reference range is for the evaluation of inflammation. Order CRP, High Sensitivity for cardiac risk status evaluation. Blood 04/06/2025 4:00 PM EST 04/06/2025 4:00 PM EST us Sepideh Barrientos MD LAB BLOOD BKR ORDERABLES F inal Result Performing Organization Address City/[facility]/ZIP Co de Phone Number [address] [address] * Thyroid Stimulating Hormone (TSH) (04/06/2025 4:00 PM EST) TSH 0.51 0.40 - 5.00 uIU/mL 04/07/2025 12:38 PM EST [facility] Blood 04/06/2025 4:00 PM EST 04/06/2025 4:00 PM EST us Sepideh Barrientos MD LAB BLOOD BKR ORDERABLES F inal Result Performing Organization Address [facility]/ZIP Co de Phone Number [address] [address] * Parathyroid Hormone (PTH) (04/06/2025 4:00 PM EST) Parathyroid Hormone (PTH) 37 15 - 65 pg/mL 04/07/2025 12:52 PM EST [facility] Blood 04/06/2025 4:00 PM EST 04/06/2025 4:00 PM EST us Sepideh Barrientos MD LAB BLOOD BKR ORDERABLES F inal Result Performing Organization Address City/[facility]/ZIP Co de Phone Number [address] [address] * (ABNORMAL) Hemoglobin A1c (04/06/2025 4:00 PM EST) Hemoglobin A1c 5.8(H) 4.3 - 5.6 % 04/07/2025 12:07 PM [facility] Calculated Mean Blood Glucose 120 mg/dL 04/07/2025 12:07 PM [facility] Comment:There is no estabs [facility] normal range for the Estimated Average Glucose [...] ORDERABLES F inal Result Performing Organization Address [facility] Co de Phone Number [address] [address] * Vitamin B12 (04/06/2025 4:00 PM EST) Vitamin B12 617 232 - 1,245 pg/mL 04/07/2025 1:11 PM [facility] Blood 04/06/2025 4:00 PM EST 04/06/2025 4:00 PM EST Sepideh Barrientos MD LAB BLOOD BKR ORDERABLES F inal Result [address] [address] * Lipid Panel (04/06/2025 4:00 PM EST) Cholesterol 188 <200 mg/dL 04/07/2025 12:38 PM [facility] HDL 77 >=40 mg/dL 04/07/2025 12:38 PM [facility] Calculated LDL 97 <130 mg/dL 04/07/2025 12:38 PM [facility] Comment:LDL is calculated us ing the Panchal-NIH equation (CAROL Cardiol. 2019 1;5(5):540-548). Non-HDL Cholesterol 111 mg/dL 04/07/2025 12:38 PM EST [facility] Comment:Guidelines suggest a non-HDL cholesterol goal 30 mg/dL higher than the patient-specific LDL cholesterol goal. Cardiac Risk Ratio 2.4 0.0 - 5.0 2024 12:38 PM EST [facility] Triglycerides 77 <=150 mg/dL 04/07/2025 12:38 PM [facility] Blood 04/06/2025 4:00 PM EST 04/06/2025 4:00 PM EST Sepideh Barrientos MD LAB BLOOD BKR ORDERABLES F inal Result [facility] [address] [place], [place] [address] * COLONOSCOPY FOR RESULT ENTRY ONLY (09/19/2023) Colonoscopy External Historical Provider HEALTH MAINTENANCE Final Result from Last 3 Months or Most Recently Relevant to Health Maintenance Insurance [employer] [place] [id number] [employer] [address] [place] [address] EMPLOYEES FAMILY [employer] [employer] FAM[employer] [place] [address] [place] [address] EMPLOYEES FAMILY [employer]ES FAMILY [employer] FAMILY Advance Directives For more information, please contact: [phone] (9AM - 5PM Анна/[facility], Sunday-Sunday) * Full Code (Latest Code Status on File) Date Activated Date Inactivated Comments 01/03/2024 12:47 PM Question Answer Comments Code Status Confirmed With: Patient * Full Code Date Activated Date Inactivated Comments 01/03/2024 7:16 AM 01/03/2024 12:47 PM Question Answer Comments Code Status Confirmed With: Patient Care Teams Rn Clinical Trials Relationship Specialty Start Date End Date [facility] [address] [address] PCP - General Family Medicine 01/04/24 Additional Source Comments The information contained in this document represents components of the legal health record. It is not the complete legal health record.[facility]
--- OUTSIDE RECORDS SUMMARY | 2025-05-19 18:44 | XMS_ITS | Encounter Summary ---
Author Organization [facility] Address [address] [facility] [address] [place] [address] Phone Care Team Providers Care Documentation Supervisor Name Role Phone Radha Carroll MD Primary Care Provider [phone] Natalie Manning MD Primary Care Provider [phone] Rustam Key DO Primary Care Provider [phone] Encounter Details Date Type Department Care Team (Late Contact Info) Description 09/03/2017 Ancillary Orders Virtual Department [address] [place] [address] Radha Carroll MD [address] [place] [address] [place] [phone] [email or web address] Localized swelling, mass and [...] Encounters Date Type Department Care Team (Late Contact Info) Description 05/20/2025 2:00 PM EST Nutrition [facility] [address] [place] [address] Liane Trejo LDN [address] [place] [address] [email or web address] documented as of this encounter Results * [...] unspecified documented in this encounter Care Teams Documentation Supervisor Relationship Specialty Start Date End Date Radha Carroll MD [email or web address] PCP - General Family Medicine 09/03/17 04/13/19 Natalie Manning MD [address] [place] [address] [email or web address] PCP - General Family Medicine 04/14/1901/02 Rustam Key DO [address] [address] PCP - General Family Medicine 01/04/24 documented as of this encounter Additional Source Comments The information contained in this document represents components of the legal health record. It is not the complete legal health record.[facility]
--- OUTSIDE RECORDS SUMMARY | 2025-05-19 18:44 | XMS_ITS | Encounter Summary ---
Author Organization [facility] Address [address] [place] [address] Phone Care Team Providers Care Globe Cleaner Name Role Phone Radha Carroll MD Primary Care Provider [phone] Natalie Manning MD Primary Care Provider [phone] Rustam Key DO Primary Care Provider [phone] Reason for Referral * Physical Therapy (Routine) - Closed Specialty Diagnoses / Procedures Referred By Larry ernandez Referred To Contact Physical Therapy Diagnoses Encounter for rehabilitation Natalie Manning MD Phone: tel: fax: mailto:[email or web address] [address] [place] [address] Phone: tel: Referral ID Status Reason Start Date Expiration Date Visits Re quested Visits Authorized [id number] Closed 03/31/2019 05/20/2020 53 [phone] Encounter Details Date Type Department Care Team (Latest Contact Info) Description 03/31/2019 Transcribe Orders [facility] Physical Therapy Clinic [address] [place] [address] Natalie Manning MD [address] [place], [place] [id number] [email or web address] Encounter for rehabilitation (Primary Dx) Social History [...] Upcoming Encounters Date Type Department Care Team ([facility] st Contact Info) Description 05/20/2025 2:00 PM EST Nutrition [facility] Surgery Clinic [address] [place] [address] Liane Trejo LDN [address] [place] [address] [email or web address] Scheduled Referrals Name Type Priority Associated Diagnoses Orde r Schedule Ambulatory referral to [facility] Physical Therapy Outpatient Referral Routine Encounter for rehabilitation Ordered: 03/31/2019 documented as of this encounter Visit Diagnoses Diagnosis Encounter for rehabilitation- Primary documented in this encounter Care Teams Globe Cleaner Relationship Specialty Start Date End Date Radha Carroll MD [email or web address] PCP - General Family Medicine 09/03/17 04/13/19 Natalie Manning MD [address] [place] [address] [email or web address] PCP - General Family Medicine 04/14/1901/02 Rustam Key DO [address] [address] PCP - General Family Medicine 01/04/24 documented as of this encounter Additional Source Comments The information contained in this document represents components of the legal health record. It is not the complete legal health record.[facility]
--- OUTSIDE RECORDS SUMMARY | 2025-05-19 18:44 | XMS_ITS | Encounter Summary ---
Author Organization [facility] Address [address] [place] [address] Phone Care Team Providers Care Product Development Scientist Name Role Phone Radha Carroll MD Primary Care Provider [phone] Natalie Manning MD Primary Care Provider [phone] Rustam Key DO Primary Care Provider [phone] Encounter Details Date Type Department Care Team (Late st Contact Info) Description 09/03/2017 Procedure Pass [facility], [address] [address] Social History Tobacco Use Types Packs/Day Years [...] documented in this encounter Plan of Treatment Upcoming Encounters Date Type Department Care Team (Late st Contact Info) Description 05/20/2025 2:00 PM EST Nutrition [facility] Clinic [address] [place] [address] Liane Trejo LDN [address] [place] [address] [email or web address] documented as of this encounter Visit Diagnoses Not on filedocumented in this encounter Care Teams Product Development Scientist Relationship Specialty Start Date End Date Radha Carroll MD [email or web address] PCP - General Family Medicine 09/03/17 04/13/19 Natalie Manning MD [address] [place] [address] [email or web address] PCP - General Family Medicine 04/14/1901/02 Rustam Key DO [address] [address] PCP - General Family Medicine 01/04/24 documented as of this encounter Additional Source Comments The information contained in this document represents components of the legal health record. It is not the complete legal health record.[facility]
--- OUTSIDE RECORDS SUMMARY | 2025-05-19 18:44 | XMS_ITS | Encounter Summary ---
Author Organization [facility] Address [address] [place] [address] [place] [address] Phone Care Team Providers Care Rotary Drill Operator Name Role Phone Radha Carroll MD Primary Care Provider [phone] Natalie Manning MD Primary Care Provider [phone] Rustam Key DO Primary Care Provider + [phone] Encounter Details Date Type Department Care Team (Late st Contact Info) Description 09/04/2017 Procedure Pass [facility],Outside Imaging [address] [place] [address] Social History Tobacco Use Types Packs/Day Years [...] Info) Description 05/20/2025 2:00 PM EST Nutrition [facility] Surgery Clinic [address] [place] [address] Liane Trejo LDN [address] [place] [address] documented as of this encounter Visit Diagnoses Not on filedocumented in this encounter Care Teams Rotary Drill Operator Relationship Specialty Start Date End Date Radha Carroll MD [email or web address] PCP - General Family Medicine 09/03/17 04/13/19 Natalie Manning MD [address] [place], [place] [id number] [email or web address] PCP - General Family Medicine 04/14/1901/02 Rustam Key DO [address] [address] PCP - General Family Medicine 01/04/24 documented as of this encounter Additional Source Comments The information contained in this document represents components of the legal health record. It is not the complete legal health record.[facility]
--- OUTSIDE RECORDS SUMMARY | 2025-05-19 18:44 | XMS_ITS | Encounter Summary ---
Author Organization [facility] Address [address] [place] [address] Phone Care Team Providers Care Blood Splatter Analyst Name Role Phone Radha Carroll MD Primary Care Provider [phone] Natalie Manning MD Primary Care Provider [phone] Rustam Key DO Primary Care Provider [phone] Reason for Referral * MRI/CAT Scan - Closed Specialty Diagnoses / Procedures Referred By Contac t Referred To Contact Procedures CT Abdomen Outside (No Interpretation) System, Provider Not In, PhD [employer] [address] [place] [address] Referral ID Status Reason Start Date Expiration Date Visits Re quested Visits Authorized [id number] Closed 09/04/2017 09/04/2018 1 1 Encounter Details Date Type Department Care Team (Late st Contact Info) Description 09/04/2017 Ancillary Orders [facility],Outside Imaging [address] [place] [address] System, Provider Not In, [place] [address] Social History Tobacco Use Types Packs/Day Years Used Date Smoking Tobacco: Never Assessed Comments Unknown Sex and Gender Information Value Date Recorded Sex Assigned at Female 11/30/2023 8:17 AM EDT Legal Sex Female 9:45 PM EDT Gender Identity Female 11/30/2023 8:17 AM EDT Sexual Orientation Not on file documented as of this encounter Plan of Treatment Upcoming Encounters Date Type Department Care Team ([facility] st Contact Info) Description 05/20/2025 2:00 PM EST Nutrition [facility] General Surgery Clinic [address] [place] [address] Liane Trejo LDN [address] [place] [address] [email or web address] documented as of this encounter Results * CT Abdomen Outside (No Interpretation) (08/31/2017 12:00 AM EDT) Narrative SYSTEMGENERATED, DOCUMENTATION - 09/04/2017 6:22 AM EDT This study is for PACS storage only and not for interpretation. us Provider Not In System PhD IMG OUTSIDE IMAGING W /OUT INTERPRETATION Final Result documented in this encounter Visit Diagnoses Not on filedocumented in this encounter Care Teams Blood Splatter Analyst Relationship Specialty Start Date End Date Radha Carroll MD [email or web address] PCP - General Family Medicine 09/03/17 04/13/19 Natalie Manning MD [address] [place] [address] [email or web address] PCP - General Family Medicine 04/14/1901/02 Rustam Key DO [address] [address] PCP - General Family Medicine 01/04/24 documented as of this encounter Additional Source Comments The information contained in this document represents components of the legal health record. It is not the complete legal health record.[facility]
== END 2025-05-19 15:41 | disposition home or self-care (01) ==
LOC: HO.HOS 15:19
PROVIDERS: Visit Provider Orthopaedic Surgery
DX: S52.501A Unspecified fracture of the lower end of right radius, initial encounter for closed fracture (principal); S52.611A Displaced fracture of right ulna styloid process, initial encounter for closed fracture
CPT/HCPCS: 99024